=== PATIENT | male | born 1960 | race African-American/Black ===

== ENCOUNTER 2018-04-23 13:42 | Observation (INO) | payer MEDICAID ==
[2018-04-23] VITALS: BP 147/92
[~2018-04-23] VITALS: Ht 180.3 cm; Wt 83.7 kg
[2018-04-23 15:02] LABS: EOSINOPHILS % (AUTO) 0.3 % (0.0-8.0); HEMATOCRIT 41.6 % (42-54); MEAN CORPUSCULAR HEMOGLOBIN 29.7 pg (27.0-33.0); MEAN CORPUSCULAR HGB CONC 34.4 g/dL (32.0-36.0); MEAN CORPUSCULAR VOLUME 86.3 fL (79-99); MONOCYTES % (AUTO) 7.5 % (3.0-13.0); NEUTROPHILS % (AUTO) 75.2 % (40.0-77.0); PLATELET COUNT (AUTO) 402 K/uL (130-400); RED BLOOD CELL COUNT(AUTO) 4.82 MIL/uL (4.50-6.20); RED CELL DISTRIBUTION WIDTH 13.2 % (11.0-15.5); WHITE BLOOD COUNT (AUTO) 7.1 K/uL (4.8-10.8)
[2018-04-23] MEDS ORDERED: SODIUM CHLORIDE 0.9% 1000ML 1,000 ML IV ONE (15:05)
[2018-04-23] MEDS ORDERED: ONDANSETRON HCL 4 MG/2 ML VIAL ONE (15:05)
[2018-04-23 15:16] LABS: ALBUMIN 3.9 g/dL (3.5-5.0); BILIRUBIN,TOTAL 0.4 mg/dL (0.2-1.0); POTASSIUM 4.1 mmol/L (3.5-5.1); TOTAL PROTEIN, SERUM 8.5 g/dL (6.0-8.3)
[2018-04-23 15:29] LABS: APPEARANCE,URINE CLOUDY (CLEAR); BILIRUBIN,URINE NEGATIVE (NEGATIVE); COLOR,URINE YELLOW (YELLOW); GLUCOSE, URINE (UA) >=1000 mg/dL (NEGATIVE); KETONES,URINE 5 mg/dL (NEGATIVE); LEUKOCYTE ESTERASE ,URINE TRACE (NEGATIVE); NITRATE,URINE NEGATIVE (NEGATIVE); OCCULT BLOOD,URINE SMALL (NEGATIVE); PROTEIN,URINE >=300 (NEGATIVE)
[2018-04-23 15:50] LABS: RBC,URINE 0-1 /HPF (0-1)
[2018-04-23 15:51] LABS: BACTERIA,URINE Many /HPF (None Seen)
[2018-04-23 15:55] LABS: SQUAMOUS EPITHELIAL CELL,UR Few /HPF (0-2); YEAST,URINE BUDDING Rare /HPF (None Seen)
[2018-04-23] MEDS ORDERED: HYOSCYAMINE SULFATE 0.125 MG TAB.SUBL SL ONE (17:54)
[2018-04-23] MEDS ORDERED: ACETAMINOPHEN 325 MG TAB ONE (17:54)
[2018-04-23] MEDS ORDERED: SIMETHICONE 80 MG TAB.CHEW ONE (17:54)
[2018-04-23] MEDS ORDERED: GLUCAGON 1MG KIT 1 MG ML IM PRN (22:00)
[2018-04-23] MEDS ORDERED: DEXTROSE 50%-WATER 50 ML DISP.SYRIN IV PRN (22:00)
[2018-04-23] MEDS ORDERED: CLONIDINE HCL 0.1 MG TABLET PO PRN (22:00)
[2018-04-23 22:05] VITALS: BP 142/91
[2018-04-24] MEDS: FAMOTIDINE 20MG TAB 20 MG TAB PO SCH ×2 (00:28→09:42)
[2018-04-24] MEDS ORDERED: SODIUM CHLORIDE 0.9% 1000ML 1,000 ML IV SCH (00:45)
[2018-04-24] MEDS ORDERED: DICYCLOMINE HCL 20 MG TAB ONE (03:29)
[2018-04-24] MEDS ORDERED: DICYCLOMINE HCL 20 MG TAB PO PRN (03:30)
[2018-04-24 04:00] VITALS: BP 151/87
[2018-04-24 05:08] LABS: CREATININE 0.9 mg/dL (0.5-1.5)
[2018-04-24 07:00] VITALS: BP 170/71
[2018-04-24] MEDS ORDERED: INSULIN HUMULIN R 100 UNIT/ML 3ML SQ SCH (07:30)
== END 2018-04-24 10:26 | disposition left against medical advice (07) ==
LOC: EDH 13:42 → EDHIP 13:43 → 3BH 21:43
PROVIDERS: ADMIT Internal Medicine; ATTEND Internal Medicine
DX: E87.1 Hypo-osmolality and hyponatremia (principal); I10 Essential (primary) hypertension; E11.9 Type 2 diabetes mellitus without complications; Z21 Asymptomatic human immunodeficiency virus [HIV] infection status; F17.210 Nicotine dependence, cigarettes, uncomplicated; Z79.899 Other long term (current) drug therapy
CPT/HCPCS: 36415 ×2; 71046; 80048; 80053; 81001; 82948 ×2; 83690; 85025; 87040; 87088; 87804 ×2; 99285; G0378 ×21; J2405; J7030

== ENCOUNTER 2019-04-20 16:52 | Inpatient (IN) | payer MEDICAID ==
[~2019-04-20] VITALS: Ht 180.3 cm; Wt 71.7 kg
[~2019-04-20 16:52] MED LIST: BUPR300T54 PO; CLOP75TA32 PO; DOLU50TA PO; EMTR1TAB12 PO; LISI40TA4 PO; OMEP40CA13 PO; OXCA600T18 PO; TRAM50TA4 PO
[2019-04-20 17:31] LABS: BASOPHILS % (AUTO) 0.9 % (0.0-5.0); EOSINOPHILS % (AUTO) 0.6 % (0.0-8.0); HEMATOCRIT 32.3 % (42-54); LYMPHOCYTES % (AUTO) 22.5 % (21.0-51.0); MEAN CORPUSCULAR HGB CONC 34.5 g/dL (32.0-36.0); MEAN CORPUSCULAR VOLUME 81.1 fL (79-99); MONOCYTES % (AUTO) 8.5 % (3.0-13.0); NEUTROPHILS % (AUTO) 67.5 % (40.0-77.0); PLATELET COUNT (AUTO) 513 K/uL (130-400); RED BLOOD CELL COUNT(AUTO) 3.98 MIL/uL (4.50-6.20); RED CELL DISTRIBUTION WIDTH 14.9 % (11.0-15.5); WHITE BLOOD COUNT (AUTO) 4.7 K/uL (4.8-10.8)
[2019-04-20 17:43] LABS: INR 1.02 (0.85-1.15); PARTIAL THROMBOPLASTIN TIME 35.9 SEC (26.3-35.5); PROTHROMBIN TIME 10.7 SEC (9.6-11.6)
[2019-04-20 17:51] LABS: ALBUMIN 3.7 g/dL (3.5-5.0); BILIRUBIN,TOTAL 0.5 mg/dL (0.2-1.0); CRP QUANTITATIVE 12.2 mg/L (0.00-9.0); POTASSIUM 4.5 mmol/L (3.5-5.1); TOTAL PROTEIN, SERUM 8.1 g/dL (6.0-8.3)
[2019-04-20 18:36] LABS: ERYTHROCYTE SEDIMENTATION RATE 34 MM/HR (0-20)
[2019-04-20] MEDS ORDERED: ZOSYN 3.375GM+NS 50ML 50 ML IV ONE (20:40)
[2019-04-20] MEDS ORDERED: VANCOMYCIN 1GM+NS 250ML 250 ML IV ONE (20:51)
[2019-04-20] MEDS: SODIUM CHLORIDE 0.9% 1000ML 1,000 ML IV SCH (22:44)
[2019-04-20] MEDS ORDERED: MORPHINE SULFATE 2 MG/ML 1ML SYG IV PRN (22:45)
[2019-04-20] MEDS ORDERED: ACETAMINOPHEN 325 MG TAB PO PRN (22:45)
[2019-04-20] MEDS ORDERED: ONDANSETRON HCL 4 MG/2 ML VIAL IV PRN (22:45)
[2019-04-20] MEDS ORDERED: VANCOMYCIN PROTOCOL PER PHARMACY IV SCH (22:45)
[2019-04-21] MEDS ORDERED: SODIUM CHLORIDE 0.9% 1000ML 1,000 ML IV ONE (00:22)
[2019-04-21 00:35] VITALS: BP 145/91
[2019-04-21 01:45] LABS: APPEARANCE,URINE Cloudy (CLEAR); BILIRUBIN,URINE Negative (NEGATIVE); COLOR,URINE Yellow (YELLOW); GLUCOSE, URINE (UA) Negative (NEGATIVE); KETONES,URINE Trace mg/dL (NEGATIVE); LEUKOCYTE ESTERASE ,URINE Moderate (NEGATIVE); NITRATE,URINE Negative (NEGATIVE); OCCULT BLOOD,URINE Trace (NEGATIVE); PH,URINE 7.5 (5.0-8.0); PROTEIN,URINE POS 2+ mg/dL (NEGATIVE)
[2019-04-21 02:02] LABS: BACTERIA,URINE Many /HPF (None Seen); RBC,URINE 0-1 /HPF (0-1); SQUAMOUS EPITHELIAL CELL,UR 0-2 /HPF (0-2)
[2019-04-21 04:00] VITALS: BP 142/71
[2019-04-21 04:11] LABS: BASOPHILS % (AUTO) 0.7 % (0.0-5.0); EOSINOPHILS % (AUTO) 0.3 % (0.0-8.0); HEMATOCRIT 29.5 % (42-54); LYMPHOCYTES % (AUTO) 20.6 % (21.0-51.0); MEAN CORPUSCULAR HEMOGLOBIN 28.4 pg (27.0-33.0); MEAN CORPUSCULAR HGB CONC 35.1 g/dL (32.0-36.0); MEAN CORPUSCULAR VOLUME 80.8 fL (79-99); NEUTROPHILS % (AUTO) 67.4 % (40.0-77.0); PLATELET COUNT (AUTO) 464 K/uL (130-400); RED BLOOD CELL COUNT(AUTO) 3.65 MIL/uL (4.50-6.20); RED CELL DISTRIBUTION WIDTH 14.8 % (11.0-15.5)
[2019-04-21 04:23] LABS: CREATININE 0.9 mg/dL (0.5-1.5); POTASSIUM 3.8 mmol/L (3.5-5.1)
[2019-04-21] MEDS: ZOSYN 3.375GM+NS 50ML 50 ML IV SCH ×2 (06:09→15:53)
[2019-04-21 08:00] VITALS: BP 157/94
[2019-04-21] MEDS: ENOXAPARIN SODIUM 40 MG/0.4 ML SYRINGE SQ SCH (08:43)
[2019-04-21] MEDS: VANCOMYCIN 1GM+NS 250ML 250 ML IV SCH ×2 (08:43→21:39)
[2019-04-21] MEDS: SODIUM CHLORIDE 0.9% 1000ML 1,000 ML IV SCH ×2 (08:44→18:54)
[2019-04-21 10:23] LABS: HEMOGLOBIN A1C 6.6 % (4.0-6.0)
[2019-04-21 12:38] VITALS: BP 157/94
--- NOTE | 2019-04-21 15:00 | NUR ---
JAXON MET W PATIENT ALONE, AAOX 3, LIVES W SPOUSE INGA WHO WILL PROVIDE TRANSPORT HOME HAS ROLLING WKR CANE AND SHOWER CHAIR, PROVIDER 4/DAY HOME SAFE & ACCESSIBLE PT AWARE WILL NEED WOUND CARE/ABX ON DISCHARGE- IS UNCOMFORTABLE IN PAIN, STATES IF NEED AIU, MOTHER IN LAW CA PORIVDE TRANSPORT OR CAN ARRANGE MEDICAL TRANSPORT. CM TO FOLLOW UP Addendum: 04/21/19 at 0 by CARLOS REYNOSO RN CM Amended: Links added.
[2019-04-21] MEDS ORDERED: DIPH,PERTUSS(ACELL),TET VAC/PF 0.5 ML VIAL IM SCH (15:30)
[2019-04-21 17:05] VITALS: BP 145/88
[2019-04-21 20:48] VITALS: BP 157/78
[2019-04-21] MEDS ORDERED: TEMAZEPAM 7.5 MG CAPSULE PO ONE ×2 (22:55→23:00)
[2019-04-22] MEDS: SODIUM CHLORIDE 0.9% 1000ML 1,000 ML IV SCH ×2 (03:36→15:23)
[2019-04-22] MEDS: ZOSYN 3.375GM+NS 50ML 50 ML IV SCH ×3 (03:36→20:58)
[2019-04-22 04:50] VITALS: BP 138/81
[2019-04-22 07:30] VITALS: BP 152/92
[2019-04-22] MEDS: ASPIRIN 81MG TAB.CHEW PO SCH (08:48)
[2019-04-22] MEDS: VANCOMYCIN 1GM+NS 250ML 250 ML IV SCH ×3 (08:48→22:18)
[2019-04-22] MEDS: ENOXAPARIN SODIUM 40 MG/0.4 ML SYRINGE SQ SCH (08:48)
[2019-04-22] MEDS ORDERED: ZIPR80CA21 PO (08:57)
[2019-04-22] MEDS ORDERED: BENZ1TAB10 PO (08:57)
[2019-04-22 11:00] VITALS: BP 159/90
[2019-04-22] MEDS ORDERED: HYDROXYZINE HCL 50 MG/ML VIAL IM PRN (11:30)
[2019-04-22 13:04] LABS: CREATININE 0.9 mg/dL (0.5-1.5); POTASSIUM 3.7 mmol/L (3.5-5.1)
[2019-04-22 16:00] VITALS: BP 121/69
[2019-04-22 20:00] VITALS: BP 154/81
--- NOTE | 2019-04-22 20:00 | NUR ---
called and left message with dr terrazas regarding following up on mri results showing some osteomylities on distal toe . pending call back
[2019-04-23] VITALS (8 sets, daily range): BP systolic 136–161; BP diastolic 69–94
[2019-04-23] MEDS: SODIUM CHLORIDE 0.9% 1000ML 1,000 ML IV SCH (00:44)
[2019-04-23 05:11] LABS: BASOPHILS % (AUTO) 1.4 % (0.0-5.0); EOSINOPHILS % (AUTO) 1.2 % (0.0-8.0); LYMPHOCYTES % (AUTO) 28.5 % (21.0-51.0); MEAN CORPUSCULAR HEMOGLOBIN 27.8 pg (27.0-33.0); MEAN CORPUSCULAR HGB CONC 33.9 g/dL (32.0-36.0); MEAN CORPUSCULAR VOLUME 82.1 fL (79-99); MONOCYTES % (AUTO) 12.1 % (3.0-13.0); NEUTROPHILS % (AUTO) 56.8 % (40.0-77.0); PLATELET COUNT (AUTO) 479 K/uL (130-400); RED BLOOD CELL COUNT(AUTO) 4.02 MIL/uL (4.50-6.20); RED CELL DISTRIBUTION WIDTH 14.9 % (11.0-15.5); WHITE BLOOD COUNT (AUTO) 5.4 K/uL (4.8-10.8)
[2019-04-23 05:19] LABS: CREATININE 0.8 mg/dL (0.5-1.5); POTASSIUM 3.4 mmol/L (3.5-5.1)
[2019-04-23] MEDS: VANCOMYCIN 1GM+NS 250ML 250 ML IV SCH ×3 (06:00→23:42)
[2019-04-23] MEDS: ZOSYN 3.375GM+NS 50ML 50 ML IV SCH ×3 (08:34→20:42)
[2019-04-23] MEDS: ASPIRIN 81MG TAB.CHEW PO SCH (08:34)
[2019-04-23] MEDS: ENOXAPARIN SODIUM 40 MG/0.4 ML SYRINGE SQ SCH (08:35)
--- NOTE | 2019-04-23 10:00 | NUR ---
NOTIFED DR SCHMITZ ON ROUNDS REGARDING MISAEL MAYA HAS SOME OF HIS MEDS AND NOT HIS HIV MEDS ,ALSO LET HIM KNOW PER PHARMACY HIV MEDS NOT AVAILABLE AND PATIENT WILL HAVE TO HAVE SOMEONE BRING . PER ZHANNA HIS IS ADMITTED AT A HOSPITAL AND UNABLE TO BEING . AWARE . SOME OF HIS HOME MEDS RECONCILATED AND CONTINUED
[2019-04-23] MEDS: LISINOPRIL 40 MG TABLET PO SCH (20:43)
[2019-04-23] MEDS: BENZTROPINE MESYLATE 0.5 MG TAB PO SCH (20:44)
[2019-04-23] MEDS: EMTRICITABINE PO SCH (20:45)
[2019-04-23] MEDS: DOLUTEGRAVIR SODIUM 50 MG PO SCH (20:45)
[2019-04-23] MEDS: TENOFOV ALAFENAM PO SCH (20:45)
[2019-04-23] MEDS: ZIPRASIDONE HCL 80 MG CAPSULE PO SCH (20:45)
--- NOTE | 2019-04-23 23:10 | NUR ---
AUTOMOTIVE PARTS COUNTERPERSON walked in to room 329 to find patient facing down on floor outside restroom door with urine noted around him. Patient awake and alert, denies he was walking towards restroom, but was asleep when he rolled off the bed, hitting right side/episcopalian area. He tried, but was unable to get up. He then dragged himself away from his bed and towards the restroom. IV line was found on floor, small amounts of dry blood noted on floor, close to feet of the bed. Patient was assisted back to bed, no injuries noted on his body, no bumps/hematomas noted on his head. V/S 161/85, 97.3, 74, 16, 99% at room air. Once in bed, he insisted he had to go to the restroom, urinal was offered, but was refused. Once in restroom, patient noted with unsteady gait, staff attempted to provide assistance, but patient became increasingly upset, refused assistance, started to raise his voice, telling staff to leave him alone. Once he was finished, staff attempted to assist him back to bed, but noted patient was increasingly upset and agitated. He was refusing to get back in bed, started yelling, saying he took psych medications and we did not know what we were dealing with. AUTOMOTIVE PARTS COUNTERPERSON and RN will continue to monitor.
--- NOTE | 2019-04-23 23:55 | NUR ---
S/P FALL-CALLED JEAN-PAUL LOVE POWER BRAKE OPERATOR TO INFORM OF FALL EARLIER, INFORMED OF PATIENT REPORTING HITTING HIS HEAD AND NOTED INCREASED RESTLESSNESS/CONFUSION, ORDER GIVEN FOR CT HEAD/BRAIN STAT. TIRE REGROOVING MACHINE OPERATOR AND BOTTOM TURNING LATHE TENDER WERE ALSO CALLED TO INFORM OF FALL. HOWEVER, PATIENT REFUSES TO HAVE CT DONE. PATIENT ARGUES HE HAS BEEN THROUGH ALOT, HAS HAD CT SCANS DONE BEFORE AND WILL NOT HAVE IT DONE. WILL LEAVE FOR NOW AND ATTEMPT AT A LATER TIME. Addendum: 04/24/19 at 1008 by VICKY MADRIGAL RN RN ADD TO ABOVE NOTE: BED ALARM WAS PLACED, BED BRAKES/SIDERAILS WERE SECURED, CALL LIGHT PLACED WITHIN REACH, PATIENT REMINDED AND ENCOURAGED TO CALL FOR ASSISTANCE PRN. ROOM LIGHTS DIMMED TO HELP RELAX.
[2019-04-24] VITALS (11 sets, daily range): BP systolic 148–167; BP diastolic 64–97
[2019-04-24] MEDS: HYDROXYZINE HCL 25 MG TABLET PO PRN ×2 (00:54→23:16)
--- NOTE | 2019-04-24 01:45 | NUR ---
S/P FALL-PATIENT REFUSES NEURO CHECKS, STARTS YELLING TO BE LEFT ALONE. WILL CONTINUE TO MONITOR.
[2019-04-24] MEDS ORDERED: LORAZEPAM 2 MG/ML 1 ML VIAL IVP ONE (03:15)
--- NOTE | 2019-04-24 03:15 | NUR ---
S/P FALL-JEAN-PAUL KATE RN INTENSIVE CARE UNIT WAS CALLED TO INFORM PATIENT HAS CONTINUED INCREASINGLY CONFUSED, ARGUMENTATIVE, VERY IMPULSIVE WANTS TO STAND AND WALK WITHOUT ASSISTANCE. HE BECOMES VERY UPSET WHEN STAFF ATTEMPTS TO PROVIDE ASSISTANCE. PATIENT AT A VERY HIGH RISK FOR FALLS/INJURY TO SELF AND OTHERS. NEW ORDER GIVEN FOR ATIVAN 1MG IV X1 AND 1:1 SITTER. PATIENT TRANSFERRED TO ROOM 326 TO BE CLOSER TO NURSE'S STATION. WILL CONTINUE TO MONITOR.
[2019-04-24] MEDS ORDERED: LORAZEPAM 2 MG/ML 1 ML VIAL ONE ×2 (03:28→08:52)
--- NOTE | 2019-04-24 03:35 | NUR ---
S/P FALL-ATIVAN 1MG IV X1 GIVEN. WILL CONTINUE TO MONITOR.
--- NOTE | 2019-04-24 03:45 | NUR ---
S/P FALL-PATIENT CURRENTLY NPO FOR PENDING SURGERY LATER TODAY. PATIENT BECAME AGGRESSIVE AND ATTEMPTED TO STRIKE AND SCRATCHED ANOTHER FLOOR RN AFTER PATIENT REQUESTED COFFEE AND WAS INFORMED OF NPO STATUS DUE TO PENDING SURGERY. WILL CONTINUE TO MONITOR.
--- NOTE | 2019-04-24 04:35 | NUR ---
S/P FALL-PATIENT MORE CALM AND COOPERATIVE AT PRESENT, AGREED TO HAVE CT SCAN DONE. PATIENT WAS TRANSFERRED DOWN TO CT ACCOMPANIED BY 1:1 SITTER AND IC DESIGNER CUSTOM WITHOUT INCIDENT. WILL CONTINUE TO MONITOR.
[2019-04-24] MEDS: ZOSYN 3.375GM+NS 50ML 50 ML IV SCH ×3 (05:09→20:02)
[2019-04-24] MEDS: ACETAMINOPHEN 325 MG TAB PO PRN (05:10)
[2019-04-24 05:53] LABS: BASOPHILS % (AUTO) 1.5 % (0.0-5.0); EOSINOPHILS % (AUTO) 1.3 % (0.0-8.0); HEMATOCRIT 31.4 % (42-54); LYMPHOCYTES % (AUTO) 17.9 % (21.0-51.0); MEAN CORPUSCULAR HEMOGLOBIN 27.8 pg (27.0-33.0); MEAN CORPUSCULAR HGB CONC 34.1 g/dL (32.0-36.0); MEAN CORPUSCULAR VOLUME 81.5 fL (79-99); MONOCYTES % (AUTO) 11.4 % (3.0-13.0); NEUTROPHILS % (AUTO) 67.9 % (40.0-77.0); PLATELET COUNT (AUTO) 455 K/uL (130-400); RED BLOOD CELL COUNT(AUTO) 3.85 MIL/uL (4.50-6.20); RED CELL DISTRIBUTION WIDTH 14.9 % (11.0-15.5)
[2019-04-24 06:05] LABS: CREATININE 0.8 mg/dL (0.5-1.5); POTASSIUM 3.5 mmol/L (3.5-5.1)
[2019-04-24] MEDS: VANCOMYCIN 1GM+NS 250ML 250 ML IV SCH ×3 (07:07→23:20)
--- NOTE | 2019-04-24 07:30 | NUR ---
S/P FALL-PATIENT CONTINUES WITH 1:1 SITTER HE CONTINUES WITH INCREASING CONFUSION/RESTLESSNESS/AGGRESSIVENESS AGAIN AND IS VERBALLY ABUSIVE TOWARDS STAFF. HE ATTEMPTS TO KICK AND SCRATCH WHEN APPROACHED TO REPOSITION IN BED HE CONTINUES TO ATTEMPT TO GET OUT OF BED UNASSISTED. SECURITY WAS CALLED FOR ASSISTANCE. WILL CONTINUE TO MONITOR.
[2019-04-24] MEDS ORDERED: LORAZEPAM 2 MG/ML 1 ML VIAL IM SCH (08:45)
--- NOTE | 2019-04-24 08:45 | NUR ---
S/P FALL-PABLO CLIVE FIELD CONTROL INSPECTOR WAS MADE AWARE OF (-) CT HEAD RESULTS, YET PATIENT CONTINUES WITH PERSISTENT CONFUSION/RESTLESSNESS/AGRESSIVENESS. NEW ORDER GIVEN FOR ATIVAN 0.5MG IM X1 AND TO CALL AGAIN IF PATIENT CONTINUES WITH PERSISTENT CONFUSION AFTER THE ATIVAN.
[2019-04-24] MEDS: ASPIRIN 81MG TAB.CHEW PO SCH (09:00)
[2019-04-24] MEDS: BUPROPION HCL 150 MG TABLET.SA PO SCH (09:00)
--- NOTE | 2019-04-24 12:15 | NUR ---
DR. MUIR INPUT DR. ISADORA LIM, STATES PT WAS REGULAR OF HIS, BOTH PT & SPOUSE AND THAT THEY STRUGGLE TO MAINTAIN A REGULAR SCHEDULE/ FOLLOW ROUTINES, REQUIRING ASSISTANCE FROM WIFES MOTHER. DR. Johnson STATED FINE FOR PT TO STAY UNDER THE HOSPITALIST. STATES PLEASE CONTACT THE SPOUSE PRIOR TO DISCUSSING ANY DC PLANS WITH PT. SPOUSE AND SPOUSE'S MOM MAKE DECISIONS FOR THE PATIENT Addendum: 04/24/19 at 1405 by CARLOS REYNOSO RN Amended: Links added.
--- NOTE | 2019-04-24 13:55 | NUR ---
SEBASTIEN BOTELLO Sincere PHP MYSQL DEVELOPER AND NATHANIEL RN FROM SURGERY WERE HERE AND ASSESS PT .REGARDING ALTER MENTAL STATUS PT WAS NOT ABLE TO FOCUS WITH HIS CARE. OR SURGERY WILL LET KNOW OF ASSESSMENT .
--- NOTE | 2019-04-24 14:10 | NUR ---
DR. STOCKTON WAS CALLED AND UPDATE OF PT . MENTAL STATUS CHANGES THIS AM. AND HIS STATUS AT THIS POINT. PT WAS GIVEN ATIVAN 0.5 MG IM EARLY IN AM. DUE TO PT VERY AGGRESSIVE MENTAL STATUS. PT AT THIS POINT QUIETLY CALM.. PT HAS A STAFF ONE TO ONE I THE ROOM ALSO THAT DR. HUTCHINSON THE DOCUMENT CONTROL SUPERVISOR WAS HERE AND THAT HE HADA CORBYFF BACK IN 2018 AND THE REPORT WILL BE INTHE CHART . DR. STOCKTON STATED THAT HE WOULD LET THE ANESTHNEISA STAFF KNOW .
[2019-04-24] MEDS ORDERED: LORAZEPAM 2 MG/ML 1 ML VIAL IVP SCH (15:53)
--- NOTE | 2019-04-24 18:30 | NUR ---
DR. BAINS HERE AND UPDATE THAT THE SUREGERY WAS CANCEL DUE TO PT. MENTAL STATUS AND HIS BEHAVIOR WAS VERY UNCONTROLABLE. AND SPOKE WITH DR. GARCIA REGARDING NEEDED CONSULTATION .
--- NOTE | 2019-04-24 18:41 | NUR ---
DR. GARCIA HERE AND THE PSYCH. CONSULTATION PER WITH NEW MEDICATION . TO START
[2019-04-24] MEDS: RISPERIDONE 1 MG TABLET PO SCH (20:00)
[2019-04-24] MEDS: DULOXETINE HCL 30 MG CAP PO SCH (20:01)
[2019-04-24] MEDS: EMTRICITABINE PO SCH (20:01)
[2019-04-24] MEDS: LISINOPRIL 40 MG TABLET PO SCH (20:01)
[2019-04-24] MEDS: OXCARBAZEPINE 300 MG TAB PO SCH (20:01)
[2019-04-24] MEDS: TENOFOV ALAFENAM PO SCH (20:01)
[2019-04-24] MEDS: DOLUTEGRAVIR SODIUM 50 MG PO SCH (20:02)
[2019-04-24] MEDS: ZIPRASIDONE HCL 80 MG CAPSULE PO SCH (20:13)
[2019-04-24] MEDS: BENZTROPINE MESYLATE 0.5 MG TAB PO SCH (20:13)
--- NOTE | 2019-04-24 23:06 | NUR ---
PATIENT RESTING COMFORTABLY AND CALMLY Addendum: 04/24/19 at 2308 by JUAN C MCDONALD RN RN Amended: Links added.
[2019-04-25 04:11] VITALS: BP 165/98
[2019-04-25 05:29] LABS: BASOPHILS % (AUTO) 1.5 % (0.0-5.0); EOSINOPHILS % (AUTO) 0.8 % (0.0-8.0); HEMATOCRIT 30.5 % (42-54); MEAN CORPUSCULAR HEMOGLOBIN 27.6 pg (27.0-33.0); MEAN CORPUSCULAR HGB CONC 33.8 g/dL (32.0-36.0); MEAN CORPUSCULAR VOLUME 81.6 fL (79-99); MONOCYTES % (AUTO) 9.3 % (3.0-13.0); NEUTROPHILS % (AUTO) 70.4 % (40.0-77.0); PLATELET COUNT (AUTO) 430 K/uL (130-400); RED BLOOD CELL COUNT(AUTO) 3.74 MIL/uL (4.50-6.20); RED CELL DISTRIBUTION WIDTH 14.9 % (11.0-15.5); WHITE BLOOD COUNT (AUTO) 7.3 K/uL (4.8-10.8)
[2019-04-25 05:44] LABS: CREATININE 0.8 mg/dL (0.5-1.5); MAGNESIUM 1.5 mg/dL (1.80-2.40); POTASSIUM 3.4 mmol/L (3.5-5.1)
[2019-04-25] MEDS: ZOSYN 3.375GM+NS 50ML 50 ML IV SCH ×3 (05:44→20:12)
[2019-04-25] MEDS: VANCOMYCIN 1GM+NS 250ML 250 ML IV SCH ×3 (07:27→22:24)
[2019-04-25 08:00] VITALS: BP 184/99
--- NOTE | 2019-04-25 08:00 | NUR ---
PT AWAKE AND CONT TO BE ANXIOUS. UNABLE TO FOCUS WITH HIS CARE. HAS STAFF ONE TO ONE FOR SAFETY AND CARE HOB UP PER REPORT ; PT DID NOT SLEEP LAST NITE AND WAS NOT ABLE TO TAKE HIS NITE MEDICATIONS REFUSED SOME OF THEM. .
--- NOTE | 2019-04-25 09:30 | NUR ---
WAS ABLE TO GIVE PT . HIS MEDICATION MIX WITH COFFEE AND TOOK THEM WELL . CONT WITH SOME AGGRESSIVE BEHAVIOR AND HAS STAFF ONE TO ONE.
--- NOTE | 2019-04-25 11:30 | NUR ---
PT RESTING WELL IN BED , NO BEHAVIOR ISSUES AFTER PT TOOK HIS PSCHY MEDICATION THAT WAS SCHLD FOR HIS AM DOSES
[2019-04-25 12:00] VITALS: BP_SYST 117; BP_SYST 159; BP_DIAS 66; BP_DIAS 78
[2019-04-25] MEDS: BUPROPION HCL 150 MG TABLET.SA PO SCH (12:28)
[2019-04-25] MEDS: ASPIRIN 81MG TAB.CHEW PO SCH (12:28)
[2019-04-25] MEDS: RISPERIDONE 1 MG TABLET PO SCH ×2 (12:28→20:13)
[2019-04-25] MEDS: DULOXETINE HCL 30 MG CAP PO SCH ×2 (12:28→20:13)
[2019-04-25] MEDS: OXCARBAZEPINE 300 MG TAB PO SCH ×2 (12:30→20:13)
[2019-04-25 16:00] VITALS: BP 169/90
--- NOTE | 2019-04-25 16:50 | NUR ---
CALL . DR STOCKTON , BUT WAS NOT ABLE TO SPEAK WITH HIM. MESSAGE GIVEN TO NURSE , . UPDATE INFORMATION LEFT . FOR DR GONZALES TO KNOW HIS BEHAVIOR IS NOT ANXIOUS AND IS EATING WELL AND IS ABLE TO FOCUS WITH HIS CARE,
[2019-04-25 19:46] VITALS: BP 176/92
[2019-04-25] MEDS: ZIPRASIDONE HCL 80 MG CAPSULE PO SCH (20:12)
[2019-04-25] MEDS: BENZTROPINE MESYLATE 0.5 MG TAB PO SCH (20:12)
[2019-04-25] MEDS: LISINOPRIL 40 MG TABLET PO SCH (20:13)
[2019-04-25] MEDS: DOLUTEGRAVIR SODIUM 50 MG PO SCH (20:17)
[2019-04-25] MEDS: TENOFOV ALAFENAM PO SCH (20:17)
[2019-04-25] MEDS: EMTRICITABINE PO SCH (20:17)
[2019-04-26] VITALS (16 sets, daily range): BP systolic 157–181; BP diastolic 64–94
[2019-04-26] MEDS: ZOSYN 3.375GM+NS 50ML 50 ML IV SCH ×4 (03:39→20:05)
[2019-04-26] MEDS: VANCOMYCIN 1GM+NS 250ML 250 ML IV SCH ×3 (06:03→21:30)
[2019-04-26 08:04] LABS: BASOPHILS % (AUTO) 1.4 % (0.0-5.0); EOSINOPHILS % (AUTO) 2.9 % (0.0-8.0); HEMATOCRIT 29.2 % (42-54); LYMPHOCYTES % (AUTO) 23.8 % (21.0-51.0); MEAN CORPUSCULAR HGB CONC 34.2 g/dL (32.0-36.0); MEAN CORPUSCULAR VOLUME 81.8 fL (79-99); MONOCYTES % (AUTO) 11.3 % (3.0-13.0); NEUTROPHILS % (AUTO) 60.6 % (40.0-77.0); PLATELET COUNT (AUTO) 425 K/uL (130-400); RED BLOOD CELL COUNT(AUTO) 3.58 MIL/uL (4.50-6.20); RED CELL DISTRIBUTION WIDTH 15.1 % (11.0-15.5); WHITE BLOOD COUNT (AUTO) 5.2 K/uL (4.8-10.8)
[2019-04-26 08:14] LABS: CREATININE 0.8 mg/dL (0.5-1.5); CRP QUANTITATIVE 75.3 mg/L (0.00-9.0)
[2019-04-26 08:33] LABS: POTASSIUM 3.4 mmol/L (3.5-5.1)
[2019-04-26] MEDS: ASPIRIN 81MG TAB.CHEW PO SCH (09:00)
[2019-04-26 09:15] LABS: ERYTHROCYTE SEDIMENTATION RATE 45 MM/HR (0-20)
[2019-04-26] MEDS: OXCARBAZEPINE 300 MG TAB PO SCH ×2 (09:59→21:31)
[2019-04-26] MEDS: RISPERIDONE 1 MG TABLET PO SCH ×2 (10:00→21:31)
[2019-04-26] MEDS: BUPROPION HCL 150 MG TABLET.SA PO SCH (10:00)
[2019-04-26] MEDS: DULOXETINE HCL 30 MG CAP PO SCH ×2 (10:00→21:31)
[2019-04-26] MEDS: METOPROLOL TARTRATE 25 MG TAB PO SCH ×2 (10:00→21:31)
[2019-04-26] MEDS: POTASSIUM CHLORIDE 20 MEQ ERTAB PO SCH (11:21)
[2019-04-26] MEDS: SODIUM CHLORIDE 0.9% 1000ML 1,000 ML IV SCH ×2 (11:21→21:30)
--- NOTE | 2019-04-26 16:09 | NUR ---
RD SCREEN - LOS X 6 Pt admitted for Left second and third toe gangrene. Pt Hx of DM, PAD, HIV. Pt diet held secondary to pending procedure. Pending debridement of right and left feet as per EMR. Post procedure, recommend to resume diet as medically feasible. Recommend Timo BID for wound healing support. Pt LBM 04/22/19. Pt monitored labs: Na 129, K 3.4, Cl 96, CRP 75.30, Alb 3.7. RD to continue to monitor. Please notify SHELBY as additional nutrition concerns arise. Thank you. Addendum: 04/26/19 at [address] Amended: Links added.
[2019-04-26] MEDS: LISINOPRIL 40 MG TABLET PO SCH (16:29)
[2019-04-26] MEDS ORDERED: LISINOPRIL 40 MG TABLET PO SCH (16:30)
[2019-04-26] MEDS: HYDRALAZINE HCL 20 MG/ML VIAL IV PRN (16:30)
[2019-04-26] MEDS ORDERED: DEXAMETHASONE SOD PHOSPHATE 10MG/ML 1ML VIAL ONE (18:43)
[2019-04-26] MEDS ORDERED: LIDOCAINE PF 2% 5ML ABBOJECT ONE (18:43)
[2019-04-26] MEDS ORDERED: MIDAZOLAM HCL 1 MG/ML 2ML VIAL ONE (18:43)
[2019-04-26] MEDS ORDERED: PROPOFOL 10 MG/ML 20ML VIAL IV ONE (18:44)
[2019-04-26] MEDS ORDERED: ONDANSETRON HCL 4 MG/2 ML VIAL ONE (18:44)
[2019-04-26] MEDS ORDERED: FENTANYL CITRATE PF 50 MCG/1 ML 2ML VIAL ONE (18:45)
[2019-04-26] MEDS ORDERED: BUPIVACAINE/PF 0.5% 30ML VIAL ONE (19:27)
[2019-04-26] MEDS ORDERED: LIDOCAINE HCL 1% 20 ML VIAL ONE (19:27)
[2019-04-26] MEDS: DOLUTEGRAVIR SODIUM 50 MG PO SCH (21:00)
[2019-04-26] MEDS: EMTRICITABINE PO SCH (21:00)
[2019-04-26] MEDS: TENOFOV ALAFENAM PO SCH (21:00)
[2019-04-26] MEDS: BENZTROPINE MESYLATE 0.5 MG TAB PO SCH (21:31)
[2019-04-26] MEDS: ZIPRASIDONE HCL 80 MG CAPSULE PO SCH (21:31)
[2019-04-27] MEDS: ZOSYN 3.375GM+NS 50ML 50 ML IV SCH ×3 (03:41→19:39)
[2019-04-27 04:03] VITALS: BP 183/80
[2019-04-27] MEDS: HYDRALAZINE HCL 20 MG/ML VIAL IV PRN (04:16)
[2019-04-27 05:30] LABS: BASOPHILS % (AUTO) 1.1 % (0.0-5.0); EOSINOPHILS % (AUTO) 1.7 % (0.0-8.0); HEMATOCRIT 34.3 % (42-54); LYMPHOCYTES % (AUTO) 12.6 % (21.0-51.0); MEAN CORPUSCULAR HEMOGLOBIN 27.5 pg (27.0-33.0); MEAN CORPUSCULAR HGB CONC 33.5 g/dL (32.0-36.0); MEAN CORPUSCULAR VOLUME 82.1 fL (79-99); MONOCYTES % (AUTO) 8.1 % (3.0-13.0); NEUTROPHILS % (AUTO) 76.5 % (40.0-77.0); PLATELET COUNT (AUTO) 442 K/uL (130-400); RED BLOOD CELL COUNT(AUTO) 4.18 MIL/uL (4.50-6.20); RED CELL DISTRIBUTION WIDTH 14.9 % (11.0-15.5); WHITE BLOOD COUNT (AUTO) 6.2 K/uL (4.8-10.8)
[2019-04-27 05:40] LABS: CREATININE 0.8 mg/dL (0.5-1.5); CRP QUANTITATIVE 40.8 mg/L (0.00-9.0)
[2019-04-27] MEDS: VANCOMYCIN 1GM+NS 250ML 250 ML IV SCH ×3 (06:22→22:01)
[2019-04-27 07:14] LABS: ERYTHROCYTE SEDIMENTATION RATE 25 MM/HR (0-20)
[2019-04-27 07:30] VITALS: BP 129/62
[2019-04-27] MEDS: POTASSIUM CHLORIDE 20 MEQ ERTAB PO SCH (07:43)
[2019-04-27] MEDS: DULOXETINE HCL 30 MG CAP PO SCH ×2 (09:04→19:40)
[2019-04-27] MEDS: RISPERIDONE 1 MG TABLET PO SCH ×2 (09:04→19:40)
[2019-04-27] MEDS: METOPROLOL TARTRATE 25 MG TAB PO SCH ×2 (09:04→19:40)
[2019-04-27] MEDS: LISINOPRIL 40 MG TABLET PO SCH (09:04)
[2019-04-27] MEDS: ASPIRIN 81MG TAB.CHEW PO SCH (09:04)
[2019-04-27] MEDS: BUPROPION HCL 150 MG TABLET.SA PO SCH (09:05)
[2019-04-27] MEDS: OXCARBAZEPINE 300 MG TAB PO SCH ×2 (09:05→19:40)
[2019-04-27 11:58] VITALS: BP 144/88
[2019-04-27 16:00] VITALS: BP 165/80
[2019-04-27] MEDS: BENZTROPINE MESYLATE 0.5 MG TAB PO SCH (19:40)
[2019-04-27] MEDS: ZIPRASIDONE HCL 80 MG CAPSULE PO SCH (19:40)
[2019-04-27] MEDS: TENOFOV ALAFENAM PO SCH (19:46)
[2019-04-27] MEDS: DOLUTEGRAVIR SODIUM 50 MG PO SCH (19:46)
[2019-04-27] MEDS: EMTRICITABINE PO SCH (19:46)
[2019-04-27 20:00] VITALS: BP 156/77
[2019-04-28] VITALS (7 sets, daily range): BP systolic 111–172; BP diastolic 53–91
[2019-04-28] MEDS: ZOSYN 3.375GM+NS 50ML 50 ML IV SCH ×3 (03:46→20:42)
[2019-04-28] MEDS: VANCOMYCIN 1GM+NS 250ML 250 ML IV SCH ×2 (06:00→23:56)
[2019-04-28] MEDS: POTASSIUM CHLORIDE 20 MEQ ERTAB PO SCH ×2 (10:45→11:36)
[2019-04-28] MEDS: DULOXETINE HCL 30 MG CAP PO SCH (11:34)
[2019-04-28] MEDS: OXCARBAZEPINE 300 MG TAB PO SCH (11:34)
[2019-04-28] MEDS: ASPIRIN 81MG TAB.CHEW PO SCH (11:35)
[2019-04-28] MEDS: METOPROLOL TARTRATE 25 MG TAB PO SCH (11:35)
[2019-04-28] MEDS: RISPERIDONE 1 MG TABLET PO SCH ×2 (11:35→21:00)
[2019-04-28] MEDS: LISINOPRIL 40 MG TABLET PO SCH (11:35)
[2019-04-28] MEDS: BUPROPION HCL 150 MG TABLET.SA PO SCH (11:35)
[2019-04-28] MEDS: HYDRALAZINE HCL 20 MG/ML VIAL IV PRN (13:05)
--- NOTE | 2019-04-28 14:43 | NUR ---
DISCHARGE PLANNING W MOTHER IN LAW SAFE DISCHARGE REQUIRES CARE AT HOME CALL TO MOTHER IN LAW LEANDRA HARRINGTON WHO HAS DAUGHTER/ SPOUSES PHONE, SOUSE HOSPITALIZED, LEANDRA TRYING TO ARRANGE PROVIDER SERVICES, DOES NOT WANT OLD PROVIDER BACK IN HER HOME. CALLED TO CYDNEY AT [facility] PROVIDER, WHO STATES THEY HAVE A CARE PLAN FOR HE PATIENT BUT HE HAS TO AGREE TO IT. MIL IS NOT POA. CM INFORMED CYDNEY THAT PT IS TOO SEDATED TO GIVE ANY CONSENT TO CARE PLAN AT THE MOMENT AND WE ARE WORKING WITH THE MD TO ADJUST MEDICATIONS CALL BACK FROM MOTHER IN LAW, SHE WILL BE BY LATER TOSEE PATIENT, IS SUGGESTING MAYBE PLAN OF CARE CAN BE EXPLAINED AND DOCUMENTED AND FAXED TO [facility] SO SERVICE CHANGE CAN START WEDNESDAY? CM IN AGREEMENT TO ASSIST. AARON DC THIS WEEKEND Addendum: 04/28/19 at 1452 by CARLOS REYNOSO RN CM Amended: Links added.
--- NOTE | 2019-04-28 17:15 | NUR ---
PATIENT AGREED TO CHANGE IN HOME CARE PROVIDERS PATIENT AWAKE, COHERENT , UNCOMFORTABLE, ADVISED HIM THAT HIS MOTHER IN LAW REQUESTED A CHANGE IN HOME CARE PROVIDERS ON DISCHARGE, AND THAT [facility] NEEDED TO KNOW IF HE WAS AGREEABLE TO A SWITCH - THAT THE DECISION WAS HIS, NO ONE ELSES, MR SMITH STATES THAT HAVING VANESSA COME BACK WAS OK WITH HIM. THIS WAS WITNESSED BY JHONNY ROD, [facility] WILL NEED TO BE NOTIFIED SO CHANGE CAN GO INTO EFFECT ON WednesdayMAY 01 Addendum: 04/28/19 at 1853 by CARLOS REYNOSO RN CORRECTION- PREVIOUS PROVIDER'S NAME IS COLE, NOT VANESSA. PT WOULD BE OK TO HAVE COLE COME TO LOOK AFTER HIM UNTIL A MALE PROVIDER ANDRES TIS ACCEPTABLE TO MR MUNOZ AND HIS FMAILY CAN BE FOUND
[2019-04-28] MEDS: LACTULOSE 20 GM/30 ML UDCUP PO PRN (18:13)
--- NOTE | 2019-04-28 19:19 | NUR ---
ORDERS FORM DR STOCKTON- SAW DR. STOCKTON IN [facility], DISCUSSED PT, DR. STOCKTON WOULD LIKE BOTH PT AND HIS TO BE PLACED- CM ADVISED HIM THAT IS NOT POSSIBLE, DR. STOCKTON STATES PT NEEDS WHEEL CHAIR- TITLE XIX SIGNED AND PLACED ON CM DESK FRO FOLLOW UP IN AM DR. STOCKTON ENTERED ORDER FOR DSG CHANGES/HH. ADVISED HIM THAT [facility] AND/OR [facility] MAY TAKE PTS TYPE OF MEDICAID- DR. STOCKTON FINE WITH EITHER ONE OF THOSE, CM WILL FOLLOW-UP IN AM
[2019-04-28] MEDS: DOLUTEGRAVIR SODIUM 50 MG PO SCH (20:05)
[2019-04-28] MEDS: EMTRICITABINE PO SCH (20:05)
[2019-04-28] MEDS: TENOFOV ALAFENAM PO SCH (20:05)
[2019-04-29] MEDS: BENZTROPINE MESYLATE 0.5 MG TAB PO SCH ×2 (00:06→22:42)
[2019-04-29] MEDS: OXCARBAZEPINE 300 MG TAB PO SCH ×3 (00:06→21:00)
[2019-04-29] MEDS: ZIPRASIDONE HCL 80 MG CAPSULE PO SCH ×2 (00:06→22:42)
[2019-04-29] MEDS: DULOXETINE HCL 30 MG CAP PO SCH ×3 (00:07→22:43)
[2019-04-29] MEDS: METOPROLOL TARTRATE 25 MG TAB PO SCH ×3 (00:08→22:44)
[2019-04-29] MEDS: ZOSYN 3.375GM+NS 50ML 50 ML IV SCH ×3 (04:03→19:59)
[2019-04-29 04:51] LABS: ALBUMIN 2.6 g/dL (3.5-5.0); CREATININE 1.7 mg/dL (0.5-1.5); MAGNESIUM 1.3 mg/dL (1.80-2.40); PHOSPHORUS 4.3 mg/dL (2.5-4.9)
[2019-04-29 05:15] LABS: BASOPHILS % (AUTO) 0.7 % (0.0-5.0); HEMATOCRIT 28.8 % (42-54); LYMPHOCYTES % (AUTO) 15.2 % (21.0-51.0); MEAN CORPUSCULAR HEMOGLOBIN 27.5 pg (27.0-33.0); MEAN CORPUSCULAR HGB CONC 33.6 g/dL (32.0-36.0); MEAN CORPUSCULAR VOLUME 81.9 fL (79-99); MONOCYTES % (AUTO) 12.6 % (3.0-13.0); NEUTROPHILS % (AUTO) 70.5 % (40.0-77.0); PLATELET COUNT (AUTO) 413 K/uL (130-400); RED BLOOD CELL COUNT(AUTO) 3.52 MIL/uL (4.50-6.20); WHITE BLOOD COUNT (AUTO) 6.7 K/uL (4.8-10.8)
[2019-04-29 08:00] VITALS: BP 135/60
[2019-04-29] MEDS: VANCOMYCIN 1GM+NS 250ML 250 ML IV SCH ×2 (09:12→22:54)
[2019-04-29] MEDS: BUPROPION HCL 150 MG TABLET.SA PO SCH (09:13)
[2019-04-29] MEDS: RISPERIDONE 1 MG TABLET PO SCH ×2 (09:13→21:00)
[2019-04-29] MEDS: ASPIRIN 81MG TAB.CHEW PO SCH (09:14)
[2019-04-29] MEDS: POTASSIUM CHLORIDE 20 MEQ ERTAB PO SCH (10:45)
--- NOTE | 2019-04-29 11:07 | NUR ---
PT: Spoke w primary nurse regarding obtaining PT orders to eval and treat.
[2019-04-29 12:00] VITALS: BP 135/60
[2019-04-29] MEDS ORDERED: ENOXAPARIN SODIUM 30 MG/0.3 ML SQ SCH (15:45)
[2019-04-29] MEDS ORDERED: BENZOCAINE/MENTH/CETYLPYRD CL 1 EACH LOZENGE MM PRN (15:45)
[2019-04-29] MEDS ORDERED: MAGNESIUM 2GM PREMIX 50ML 50 ML IV PRN (15:45)
[2019-04-29 16:00] VITALS: BP 120/49
[2019-04-29 20:00] VITALS: BP 135/51
[2019-04-29] MEDS: DOLUTEGRAVIR SODIUM 50 MG PO SCH (20:22)
[2019-04-29] MEDS: TENOFOV ALAFENAM PO SCH (20:22)
[2019-04-29] MEDS: EMTRICITABINE PO SCH (20:22)
[2019-04-29 23:12] VITALS: BP 131/71
[2019-04-30 03:56] VITALS: BP 136/67
[2019-04-30] MEDS: ZOSYN 3.375GM+NS 50ML 50 ML IV SCH ×3 (04:13→20:11)
[2019-04-30 06:42] LABS: HEMATOCRIT 27.9 % (42-54); MEAN CORPUSCULAR HEMOGLOBIN 27.9 pg (27.0-33.0); MEAN CORPUSCULAR HGB CONC 34.3 g/dL (32.0-36.0); MEAN CORPUSCULAR VOLUME 81.2 fL (79-99); PLATELET COUNT (AUTO) 455 K/uL (130-400); RED BLOOD CELL COUNT(AUTO) 3.44 MIL/uL (4.50-6.20); RED CELL DISTRIBUTION WIDTH 15.3 % (11.0-15.5); WHITE BLOOD COUNT (AUTO) 6.7 K/uL (4.8-10.8)
[2019-04-30 06:52] LABS: CREATININE 1.7 mg/dL (0.5-1.5); POTASSIUM 3.8 mmol/L (3.5-5.1)
[2019-04-30 08:03] VITALS: BP_SYST 186; BP_SYST 187; BP_DIAS 67; BP_DIAS 99
[2019-04-30] MEDS: OXCARBAZEPINE 300 MG TAB PO SCH (08:47)
[2019-04-30] MEDS: METOPROLOL TARTRATE 25 MG TAB PO SCH ×2 (08:47→21:45)
[2019-04-30] MEDS: ASPIRIN 81MG TAB.CHEW PO SCH (08:48)
[2019-04-30] MEDS: LISINOPRIL 40 MG TABLET PO SCH (08:48)
[2019-04-30] MEDS: BUPROPION HCL 150 MG TABLET.SA PO SCH (08:49)
[2019-04-30] MEDS: DULOXETINE HCL 30 MG CAP PO SCH ×2 (08:49→21:44)
[2019-04-30] MEDS: RISPERIDONE 1 MG TABLET PO SCH ×2 (08:49→21:43)
[2019-04-30] MEDS: ENOXAPARIN SODIUM 30 MG/0.3 ML SQ SCH (08:50)
[2019-04-30] MEDS: VANCOMYCIN 1GM+NS 250ML 250 ML IV SCH ×2 (09:00→21:43)
[2019-04-30 11:16] VITALS: BP 165/67
[2019-04-30 15:51] VITALS: BP 149/61
[2019-04-30] MEDS: LACTULOSE 20 GM/30 ML UDCUP PO PRN ×2 (16:32→21:53)
--- NOTE | 2019-04-30 17:08 | NUR ---
DCP UPDATE: Spoke w Dr. Parsons and Fabby this afternoon regarding PT eval and recommendations. Informed them that per PT, pt is currently not safe to return home w poor trunk control, unable to sit @ EOB without assistance. Pt's spouse Britt is currently admitted @ [facility]. Per pt's mother in law Karen, she is not able to take pt home if not ambulating. She mentions that pt's spouse remains admitted @ [facility] and will not be discharged until poss. or Wednesday. She mentions that at this time, Britt is not able to care for pt or make any medical decisions. Per Dr. Parsons ok to refer to SNF for poss woundcare/IV ABX. F/u w pt this afternoon to discuss SNF recommendations, he continues w 1:1 sitter. Pt very groggy. Next of kin not avail. will have CM follow up in am regarding consent for SNF.
[2019-04-30 19:00] VITALS: BP 127/52
[2019-04-30] MEDS: DOLUTEGRAVIR SODIUM 50 MG PO SCH (19:50)
[2019-04-30] MEDS: TENOFOV ALAFENAM PO SCH (19:51)
[2019-04-30] MEDS: EMTRICITABINE PO SCH (19:51)
[2019-04-30] MEDS: BENZTROPINE MESYLATE 0.5 MG TAB PO SCH (21:43)
[2019-04-30] MEDS: ZIPRASIDONE HCL 80 MG CAPSULE PO SCH (21:43)
[2019-04-30 23:00] VITALS: BP 136/54
[2019-05-01] VITALS (8 sets, daily range): BP systolic 144–179; BP diastolic 55–101
[2019-05-01] MEDS: ZOSYN 3.375GM+NS 50ML 50 ML IV SCH ×3 (04:10→22:30)
[2019-05-01 05:04] LABS: HEMATOCRIT 29.9 % (42-54); MEAN CORPUSCULAR HEMOGLOBIN 27.9 pg (27.0-33.0); MEAN CORPUSCULAR HGB CONC 34.1 g/dL (32.0-36.0); MEAN CORPUSCULAR VOLUME 81.8 fL (79-99); PLATELET COUNT (AUTO) 485 K/uL (130-400); RED BLOOD CELL COUNT(AUTO) 3.66 MIL/uL (4.50-6.20); RED CELL DISTRIBUTION WIDTH 14.9 % (11.0-15.5); WHITE BLOOD COUNT (AUTO) 7.5 K/uL (4.8-10.8)
[2019-05-01 05:18] LABS: CREATININE 1.7 mg/dL (0.5-1.5); POTASSIUM 3.9 mmol/L (3.5-5.1)
--- NOTE | 2019-05-01 05:45 | NUR ---
CONFUSION-PATIENT SUDDENLY STARTED TO BECOME RESTLESS, CONFUSED, ARGUMENTATIVE AND STATES HE WANTS TO GO HOME RIGHT NOW. STAFF ATTEMPTED TO HELP CALM HIM DOWN, BUT STARTED SCOOTING DOWN IN BED AND KICKING WHEN APPROACHED. ADMINISTERED 0900 DOSE OF RISPERDAL 1MG EARLY. WILL CONTINUE TO MONITOR. HE THEN STARTED TO TRY AND GET OUT OF BED, PLACING HIS LEGS OVER THE RAILS, SIDERAILS PADDED FOR SAFETY. PATIENT HAS REMAINED WITH 2:1 SITTER MONITORING AND WILL CONTINUE TO MONITOR.
[2019-05-01] MEDS: RISPERIDONE 1 MG TABLET PO SCH ×2 (05:51→22:38)
[2019-05-01] MEDS: OXCARBAZEPINE 300 MG TAB PO SCH ×3 (09:00→22:38)
[2019-05-01] MEDS: BUPROPION HCL 150 MG TABLET.SA PO SCH (09:09)
[2019-05-01] MEDS: METOPROLOL TARTRATE 25 MG TAB PO SCH ×2 (09:10→22:38)
[2019-05-01] MEDS: LISINOPRIL 40 MG TABLET PO SCH (09:10)
[2019-05-01] MEDS: DULOXETINE HCL 30 MG CAP PO SCH ×2 (09:11→22:38)
[2019-05-01] MEDS: ASPIRIN 81MG TAB.CHEW PO SCH (09:11)
[2019-05-01] MEDS: VANCOMYCIN 1GM+NS 250ML 250 ML IV SCH (09:12)
[2019-05-01] MEDS: ENOXAPARIN SODIUM 30 MG/0.3 ML SQ SCH (09:12)
--- NOTE | 2019-05-01 11:00 | NUR ---
DYSPHAGIA EVAL COMPLETED. Pt WITH DIFFICULTY WITH SOLIDS. RECOMMEND MECHANICAL SOFT/CHOPPED, THIN LIQUIDS; PILLS WHOLE WITH LIQUIDS. RECOMMENDATIONS: 1. SKILLED SPEECH THERAPY 2-4XWK TOLERATED BY Pt. LTG#1: Pt WILL TOLERATE LEAST RESTRICTIVE DIET TO MEET NUTRITION/HYDRATION WITH NO S/S OF ASPIRATION. LTG#2: SKILLED EDUCATION Pt/FAMILY/STAFF STG#1: Pt WILL PARTICIPATE IN LARYNGEAL ELEVATION/EXCURSION EXERCISES WITH 80% ACCURACY. STG#2: Pt WILL PARTICIPATE IN TONGUE BASE RETRACTION EXERCISES WITH 80% ACCURACY. STG#3: Pt WILL PARTICIPATE IN ORAL MOTOR EXERCISES WITH 80% ACCURACY. STG#4: Pt WILL PARTICIPATE IN THERAPEUTIC TRIALS OF MECHANICAL SOFT WITH NO OVERT S/S OF ASPIRATION. STG#5: Pt WILL TOLERATE MECHANICAL SOFT/GROUND, THIN LIQUIDS WITH NO OVERT S/S OF ASPIRATIONS. STG#6: SKILLED EDUCATION Pt/FAMILY/STAFF. Addendum: 05/01/19 at 1254 by RONI REYES [facility] ST Amended: Links added.
[2019-05-01] MEDS ORDERED: DIAZEPAM 5 MG TABLET ONE (15:55)
[2019-05-01] MEDS ORDERED: DIAZEPAM 5 MG TABLET PO ONE (16:00)
[2019-05-01] MEDS ORDERED: LORAZEPAM 2 MG/ML 1 ML VIAL IVP ONE (16:15)
--- NOTE | 2019-05-01 16:17 | NUR ---
PT REFUSED VALIUM PT REFUSED VALIUM ORDER. IDALMIS ROBBINS MADE AWARE, NEW ORDER FOR ATIVAN
[2019-05-01] MEDS ORDERED: LORAZEPAM 2 MG/ML 1 ML VIAL ONE (16:20)
[2019-05-01] MEDS: TENOFOV ALAFENAM PO SCH (21:00)
[2019-05-01] MEDS: DOLUTEGRAVIR SODIUM 50 MG PO SCH (21:00)
[2019-05-01] MEDS: EMTRICITABINE PO SCH (21:00)
[2019-05-01] MEDS: DIAZEPAM 5 MG TABLET PO SCH (22:37)
[2019-05-01] MEDS: BENZTROPINE MESYLATE 0.5 MG TAB PO SCH (22:38)
[2019-05-01] MEDS: ZIPRASIDONE HCL 80 MG CAPSULE PO SCH (22:38)
[2019-05-02] MEDS: HYDRALAZINE HCL 20 MG/ML VIAL IV PRN (00:33)
[2019-05-02 03:38] VITALS: BP 153/75
[2019-05-02] MEDS: DIAZEPAM 5 MG TABLET PO SCH ×3 (05:47→22:12)
[2019-05-02 05:52] LABS: HEMATOCRIT 30.8 % (42-54); MEAN CORPUSCULAR HEMOGLOBIN 27.7 pg (27.0-33.0); MEAN CORPUSCULAR HGB CONC 33.9 g/dL (32.0-36.0); MEAN CORPUSCULAR VOLUME 81.7 fL (79-99); PLATELET COUNT (AUTO) 543 K/uL (130-400); RED BLOOD CELL COUNT(AUTO) 3.77 MIL/uL (4.50-6.20); RED CELL DISTRIBUTION WIDTH 15.1 % (11.0-15.5); WHITE BLOOD COUNT (AUTO) 6.4 K/uL (4.8-10.8)
[2019-05-02 06:02] LABS: CREATININE 1.7 mg/dL (0.5-1.5); POTASSIUM 4.2 mmol/L (3.5-5.1)
[2019-05-02 07:00] VITALS: BP 162/74
[2019-05-02 08:00] VITALS: BP 162/74
[2019-05-02 08:15] LABS: BAND NEUTROPHILS % (MANUAL) 1 % (0-2); BASOPHILS % (MANUAL) 1 % (0-2); EOSINOPHILS % (MANUAL) 1 % (1-6); LYMPHOCYTES % (MANUAL) 12 % (22-44); MONOCYTES % (MANUAL) 6 % (2-9); REACTIVE LYMPHOCYTES 1 % (0-0); SEGMENTED NEUTROPHILS % 78 % (40-70)
[2019-05-02 08:17] LABS: MAN.DIFF COMMENT-IMPRESSION MANUAL DIFFERENTIAL; PLATELET MORPHOLOGY COMMENT INCREASED
[2019-05-02] MEDS: OXCARBAZEPINE 300 MG TAB PO SCH ×2 (09:00→22:11)
[2019-05-02] MEDS: VANCOMYCIN 1GM+NS 250ML 250 ML IV SCH (09:53)
[2019-05-02] MEDS: ENOXAPARIN SODIUM 30 MG/0.3 ML SQ SCH (09:54)
[2019-05-02] MEDS: RISPERIDONE 1 MG TABLET PO SCH ×2 (09:59→22:11)
[2019-05-02] MEDS: LISINOPRIL 40 MG TABLET PO SCH (09:59)
[2019-05-02] MEDS: DULOXETINE HCL 30 MG CAP PO SCH ×2 (10:00→22:12)
[2019-05-02] MEDS: METOPROLOL TARTRATE 25 MG TAB PO SCH ×2 (10:00→22:12)
[2019-05-02] MEDS: ASPIRIN 81MG TAB.CHEW PO SCH (10:00)
--- NOTE | 2019-05-02 10:00 | NUR ---
SWALLOW TREATMENT COMPLETED. S: Pt REQUIRED COAXING TO ALERT AND PARTICIPATE. PER NURSING. Pt GIVEN MEDICATIONS LAST NIGHT THAT HAVE NOT WORN OFF TODAY. Pt RAISED TO 90 DEGREES BY SITTER AND FLATWORK FOLDER. O: Pt COOPERATIVE AT THE TIME OF THE SESSION. Pt CURRENTLY TARGETING SWALLOWING GOALS. RESULTS ARE FOLLOWS: STG#1: Pt WILL PARTICIPATE IN LARYNGEAL ELEVATION/EXCURSION EXERCISES WITH 80% ACCURACY: NOT TARGETED STG#2: Pt WILL PARTICIPATE IN TONGUE BASE RETRACTION EXERCISES WITH 80% ACCURACY:NOT TARGETED STG#3: Pt WILL PARTICIPATE IN ORAL MOTOR EXERCISES WITH 80% ACCURACY:30% ACCURACY GIVEN MAX CUES STG#4: Pt WILL PARTICIPATE IN THERAPEUTIC TRIALS OF MECHANICAL SOFT WITH NO OVERT S/S OF ASPIRATION: PT WITH COUGH RESPONSE AND INCREASED MASTICATION TIME. RESIDUE IN ORAL CAVITY CLEARED WITH LIQUID WASH. STG#5: Pt WILL TOLERATE MECHANICAL SOFT/GROUND, THIN LIQUIDS WITH NO OVERT S/S OF ASPIRATIONS: Pt REQUIRES ASSISTANCE FOR VOLUME CONTROL. TOLERATING DIET WHEN ALERT AND AWAKE DURING P.O., SEATED AT 90 DEGREES IN BED. STG#6: SKILLED EDUCATION Pt/FAMILY/STAFF.: EDUCATION FOR SITTER PROVIDED ON SAFE SWALLOW PRECAUTIONS INCLUDING POSTURE AT 90 DEGREES, SLOW RATE, ALTERNATE BITES AND SIP. A: Pt TOLERATING DIET NO OVERT S/S OF ASPIRATION. P: RECOMMEND CONTINUED SKILLED SPEECH THERAPY TARGETING SWALLOWING 2-4XWK. FLATWORK FOLDER COORDINATED CARE WITH NURSE LEE. NO FAMILY PRESENT AT THE TIME OF THE SESSION. Addendum: 05/02/19 at [address] Amended: Links added.
[2019-05-02] MEDS: BUPROPION HCL 150 MG TABLET.SA PO SCH (10:01)
[2019-05-02 12:00] VITALS: BP 179/80
[2019-05-02] MEDS: ZOSYN 3.375GM+NS 50ML 50 ML IV SCH ×2 (12:54→17:44)
--- NOTE | 2019-05-02 13:30 | NUR ---
SPOUSE AT BEDSIDE. STATES WANTS TO TAKE PT HOME, HAS PROVIDER COLE, HOME IS SAFE, PT IS THERE NOW TO PROVIDE FOR HIS NEEDS, STATES HENNY VERY ABLE TO HELP WITH PT. TURNING AND MOVING. TITLE XIX FAXED TO [facility] FOR WHEELCHAIR W LEG REST/ REMOVEABLE ARM RESTS\PLAN FOR DC IN AM AFTER DANIA DRAINS Addendum: 05/02/19 at 1648 by CARLOS REYNOSO RN CM Amended: Links added.
--- NOTE | 2019-05-02 14:31 | NUR ---
RD FOLLOW UP Pt tolerating 75gm CC, Finely chopped diet with no report of GI distress. Poor PO at 25%. Recommend to continue current dieto order. Recommend to add Glucerna with meals. Pt LBM 05/01. Pt monitored labs: Cr 1.7, GFR 54, Alb 2.6. RD to continue to monitor. Please notify RD as additional nutrition concerns arise. Thank you. Addendum: 05/02/19 at [address] Amended: Links added.
--- NOTE | 2019-05-02 14:50 | NUR ---
DR MUIR PAGED DR MUIR PAGEChetna REGARDING TRANSFERING OF SERVICES/CARE TO HIM ORDERED BY HOSPITALISTS. DR MUIR PAGER NOT ACCEPTING MESSAGES. WILL FOLLOW UP
[2019-05-02 16:00] VITALS: BP 173/80
--- NOTE | 2019-05-02 16:53 | NUR ---
DR MUIR OFFICE PAGED DR MUIR OFFICE PAGED- SPOKE TO AXEL- STATED SHE WILL RELAY MESSAGE TO AND HE WILL CALL BACK. PENDING CALL BACK
--- NOTE | 2019-05-02 18:26 | NUR ---
DR STOCKTON IN FACILITY FOR WOUND CARE DANIA DRAINS REMOVED TO BILATERAL FEET. WOUND CARE PROVIDED BY DR STOCKTON. PER MAHIN STILL NONWEIGHT BEARING TO BILATERAL FEET. NOTED AND CARREID OUT
[2019-05-02 20:03] VITALS: BP 156/75
[2019-05-02] MEDS: DOLUTEGRAVIR SODIUM 50 MG PO SCH (20:03)
[2019-05-02] MEDS: TENOFOV ALAFENAM PO SCH (20:03)
[2019-05-02] MEDS: EMTRICITABINE PO SCH (20:03)
[2019-05-02] MEDS: ZIPRASIDONE HCL 80 MG CAPSULE PO SCH (22:11)
[2019-05-02] MEDS: BENZTROPINE MESYLATE 0.5 MG TAB PO SCH (22:12)
[2019-05-03 00:16] VITALS: BP 179/75
[2019-05-03] MEDS: ACETAMINOPHEN 325 MG TAB PO PRN (02:05)
[2019-05-03 03:51] VITALS: BP 194/79
[2019-05-03] MEDS: ZOSYN 3.375GM+NS 50ML 50 ML IV SCH ×3 (04:31→21:06)
[2019-05-03 05:21] LABS: CREATININE 1.6 mg/dL (0.5-1.5); POTASSIUM 3.9 mmol/L (3.5-5.1)
[2019-05-03 05:41] LABS: HEMATOCRIT 32.2 % (42-54); MEAN CORPUSCULAR HEMOGLOBIN 26.8 pg (27.0-33.0); MEAN CORPUSCULAR HGB CONC 33.1 g/dL (32.0-36.0); MEAN CORPUSCULAR VOLUME 81.1 fL (79-99); NUCLEATED RED BLOOD CELLS 0.1 % (0.0-0.19); PLATELET COUNT (AUTO) 475 K/uL (130-400); RED BLOOD CELL COUNT(AUTO) 3.97 MIL/uL (4.50-6.20); RED CELL DISTRIBUTION WIDTH 15.1 % (11.0-15.5); WHITE BLOOD COUNT (AUTO) 7.2 K/uL (4.8-10.8)
[2019-05-03 06:40] LABS: BASOPHILS % (MANUAL) 4 % (0-2); EOSINOPHILS % (MANUAL) 2 % (1-6); LYMPHOCYTES % (MANUAL) 12 % (22-44); MAN.DIFF COMMENT-IMPRESSION MANUAL DIFFERENTIAL; MONOCYTES % (MANUAL) 12 % (2-9); PLATELET MORPHOLOGY COMMENT SLIGHT INCREASED; REACTIVE LYMPHOCYTES 2 % (0-0); SEGMENTED NEUTROPHILS % 68 % (40-70)
[2019-05-03] MEDS: DIAZEPAM 5 MG TABLET PO SCH ×3 (09:00→21:05)
[2019-05-03] MEDS: OXCARBAZEPINE 300 MG TAB PO SCH ×2 (09:01→21:04)
[2019-05-03] MEDS: BUPROPION HCL 150 MG TABLET.SA PO SCH (09:01)
[2019-05-03] MEDS: DULOXETINE HCL 30 MG CAP PO SCH ×2 (09:01→21:04)
[2019-05-03] MEDS: RISPERIDONE 1 MG TABLET PO SCH ×2 (09:02→21:04)
[2019-05-03] MEDS: ASPIRIN 81MG TAB.CHEW PO SCH (09:02)
[2019-05-03] MEDS: LISINOPRIL 40 MG TABLET PO SCH (09:02)
[2019-05-03] MEDS: METOPROLOL TARTRATE 25 MG TAB PO SCH ×2 (09:02→21:04)
[2019-05-03] MEDS: ENOXAPARIN SODIUM 30 MG/0.3 ML SQ SCH (09:03)
[2019-05-03] MEDS: VANCOMYCIN 1GM+NS 250ML 250 ML IV SCH (09:03)
[2019-05-03 09:32] VITALS: BP 175/69
--- NOTE | 2019-05-03 11:26 | NUR ---
DISCUSSED NEW SWALLOWING ISSUES WITH PRIMARY RN SEE BUTTON CLAMPER NOTES CALL TO SPOUSE, ASKE DIF SHE WOULD CONSENT TO PLACEMENT, NOW, WITH THE SPEECH THERAPY THAT HE NEEDS; SHE AGREED, WITH JESUS A WITNESS, CALL TO [facility]OS[facility] PTS, NEEDS, WILL SEND PKT. CALL TO FUEL MANAGEMENT HANDLER PENDING
--- NOTE | 2019-05-03 11:50 | NUR ---
DYSPHAGIA RE-EVAL COMPLETED. +S/S OF ASPIRATION OF COUGH RESPONSE WITH THIN AND MECHANICAL SOF/GROUND DIET. RECOMMEND PUREED, NECTAR-THICK LIQUIDS; PILLS CRUSHED WITH APPLESAUCE. Addendum: 05/03/19 at 1152 by RONI REYES, [facility] Amended: Links added.
[2019-05-03 12:00] VITALS: BP 105/74
[2019-05-03 16:43] VITALS: BP 189/87
--- NOTE | 2019-05-03 18:00 | NUR ---
NO FACILITY PLACEMENT!... DCP HOME DISCHARGE TO HOME.PENDING HH AND WHEELCHAIR, STILL PENDING.. CALL TO SPOUSE TO SHARE DC PLAN CHANGE- NO ANSWER
[2019-05-03 20:00] VITALS: BP 171/92
[2019-05-03] MEDS: DOLUTEGRAVIR SODIUM 50 MG PO SCH (21:00)
[2019-05-03] MEDS: TENOFOV ALAFENAM PO SCH (21:00)
[2019-05-03] MEDS: EMTRICITABINE PO SCH (21:00)
[2019-05-03] MEDS: ZIPRASIDONE HCL 80 MG CAPSULE PO SCH (21:04)
[2019-05-03] MEDS: BENZTROPINE MESYLATE 0.5 MG TAB PO SCH (21:05)
--- NOTE | 2019-05-03 21:29 | NUR ---
TRANSFER OF CARE Report and transfer of care given by TYRONE Vang.
[2019-05-04] VITALS: BP 167/75
[2019-05-04] MEDS: ZOSYN 3.375GM+NS 50ML 50 ML IV SCH ×3 (03:38→22:38)
[2019-05-04 04:00] VITALS: BP 150/67
[2019-05-04 07:00] VITALS: BP 182/81
[2019-05-04] MEDS: DULOXETINE HCL 30 MG CAP PO SCH ×2 (09:34→22:30)
[2019-05-04] MEDS: BUPROPION HCL 150 MG TABLET.SA PO SCH (09:35)
[2019-05-04] MEDS: RISPERIDONE 1 MG TABLET PO SCH ×2 (09:35→22:30)
[2019-05-04] MEDS: ASPIRIN 81MG TAB.CHEW PO SCH (09:38)
[2019-05-04] MEDS: OXCARBAZEPINE 300 MG TAB PO SCH ×2 (09:39→22:30)
[2019-05-04] MEDS: METOPROLOL TARTRATE 25 MG TAB PO SCH ×2 (09:39→22:30)
[2019-05-04] MEDS: LISINOPRIL 40 MG TABLET PO SCH (09:39)
[2019-05-04] MEDS: ENOXAPARIN SODIUM 30 MG/0.3 ML SQ SCH (09:46)
[2019-05-04] MEDS: VANCOMYCIN 1GM+NS 250ML 250 ML IV SCH (09:47)
--- NOTE | 2019-05-04 09:49 | NUR ---
CLARIFICATION- HAS NO SNF BENEFITS, COULD GO LT C[place] AT [place] SPOKE TO [place] ON PHONE, FLATLY DECLINES TO TAKE PT HOME, CALL TO [facility] , WILL FIND OUT IF PT HAS LT BEDS AT [facility]
--- NOTE | 2019-05-04 10:30 | NUR ---
SWALLOW TREATMENT COMPLETED. S: Pt REQUIRED COAXING TO ALERT AND PARTICIPATE. NO FAMILY PRESENT AT THIS TIME. O: Pt COOPERATIVE AT THE TIME OF THE SESSION. Pt CURRENTLY TARGETING SWALLOWING GOALS. RESULTS ARE FOLLOWS: STG#1: Pt WILL PARTICIPATE IN LARYNGEAL ELEVATION/EXCURSION EXERCISES WITH 80% ACCURACY: NOT TARGETED STG#2: Pt WILL PARTICIPATE IN TONGUE BASE RETRACTION EXERCISES WITH 80% ACCURACY:NOT TARGETED STG#3: Pt WILL PARTICIPATE IN ORAL MOTOR EXERCISES WITH 80% ACCURACY:30% ACCURACY GIVEN MAX CUES STG#4: Pt WILL PARTICIPATE IN THERAPEUTIC TRIALS OF MECHANICAL SOFT WITH NO OVERT S/S OF ASPIRATION: PT WITH NO COUGH RESPONSE AND INCREASED MASTICATION TIME. IMPROVED MASTICATION AND ORAL STRENGTH PRESENT. STG#5: Pt WILL TOLERATE PUREED, NECTAR-THICK LIQUIDS WITH NO OVERT S/S OF ASPIRATIONS: Pt REQUIRES ASSISTANCE FOR VOLUME CONTROL. TOLERATING DIET WHEN ALERT AND AWAKE DURING P.O., SEATED AT 90 DEGREES IN BED. A: Pt TOLERATING DIET NO OVERT S/S OF ASPIRATION. Pt WITH IMPROVED PARTICIPATION AT THIS TIME. SET-UP ASSISTANCE REQUIRED. P: RECOMMEND CONTINUED SKILLED SPEECH THERAPY TARGETING SWALLOWING 2-4XWK. FRUIT GRADER COORDINATED CARE WITH NURSE GARCIA. NO FAMILY PRESENT AT THE TIME OF THE SESSION. Addendum: 05/04/19 at 1322 by KRISTA OLSON Amended: Links added.
[2019-05-04 11:00] VITALS: BP 156/84
[2019-05-04] MEDS: DIAZEPAM 5 MG TABLET PO SCH ×3 (11:32→22:38)
--- NOTE | 2019-05-04 15:19 | NUR ---
MET Estela NELSON AT BEDSIDE, BEFORE LUNCH WHO ASSESSED PT AND SENT ALL INFO/PKT/PASSR' CM WILL GET IN TOUCH WITH SPOUSE CONTACTED MOTHER IN LAW - SPOUSE WITH HER- THEY WERE AT AN MD APPT. UPDATED ON PLAN, ALL IN AGREEMENT NUMBER GIVEN TO LESLIE TO CONTACT LEANDRA HUNG MOTHER IN LAW ANS CAREGIVER OF SPOUSE INGA NUMBER IS [phone]
[2019-05-04 16:00] VITALS: BP 177/83
[2019-05-04 20:00] VITALS: BP 168/88
[2019-05-04] MEDS: DOLUTEGRAVIR SODIUM 50 MG PO SCH (21:00)
[2019-05-04] MEDS: EMTRICITABINE PO SCH (21:00)
[2019-05-04] MEDS: TENOFOV ALAFENAM PO SCH (21:00)
[2019-05-04] MEDS: BENZTROPINE MESYLATE 0.5 MG TAB PO SCH (22:30)
[2019-05-04] MEDS: ZIPRASIDONE HCL 80 MG CAPSULE PO SCH (22:30)
[2019-05-05] VITALS: BP 166/101
[2019-05-05 04:00] VITALS: BP_SYST 122; BP_SYST 156; BP_DIAS 66; BP_DIAS 76
[2019-05-05] MEDS: ZOSYN 3.375GM+NS 50ML 50 ML IV SCH ×2 (05:12→11:54)
[2019-05-05 08:00] VITALS: BP 182/76
[2019-05-05] MEDS: VANCOMYCIN 1GM+NS 250ML 250 ML IV SCH (09:00)
[2019-05-05] MEDS: LISINOPRIL 40 MG TABLET PO SCH (09:00)
[2019-05-05] MEDS: ENOXAPARIN SODIUM 30 MG/0.3 ML SQ SCH (09:00)
[2019-05-05] MEDS: DIAZEPAM 5 MG TABLET PO SCH ×2 (09:00→14:00)
[2019-05-05] MEDS: HYDRALAZINE HCL 20 MG/ML VIAL IV PRN (09:02)
--- NOTE | 2019-05-05 10:38 | NUR ---
cm note faxed request to medicaid hs for approval for ems, pending approval.
--- NOTE | 2019-05-05 11:48 | NUR ---
FOLLOW UP. Pt ASLEEP UPON manager produce VISIT. SENIOR SOFTWARE ENGINEER COORDINATED CARE WITH NURSE AGUILAR AT THIS TIME. PUREED, NECTAR-THICK LIQUID DIET CONTINUES TO BE RECOMMENDED. Pt WITH MOMENTS OF IMPROVED MENTAL STATUS AND ALERTNESS, HOWEVER, IT IS INCONSISTENT. SKILLED SPEECH THERAPY CONTINUES TO BE RECOMMENDED AT THIS TIME. Addendum: 05/05/19 at 1150 by RONI REYES, [facility] Amended: Links added.
[2019-05-05 12:00] VITALS: BP 124/81
--- NOTE | 2019-05-05 13:32 | NUR ---
cm note received call from aiyana with [facility] and states pt is accepted. updated primary nurse. La.
[2019-05-05] MEDS: DULOXETINE HCL 30 MG CAP PO SCH (14:07)
[2019-05-05] MEDS: BUPROPION HCL 150 MG TABLET.SA PO SCH (14:07)
[2019-05-05] MEDS: RISPERIDONE 1 MG TABLET PO SCH (14:07)
[2019-05-05] MEDS: ASPIRIN 81MG TAB.CHEW PO SCH (14:08)
[2019-05-05] MEDS: METOPROLOL TARTRATE 25 MG TAB PO SCH (14:08)
[2019-05-05] MEDS: OXCARBAZEPINE 300 MG TAB PO SCH (14:10)
[2019-05-05 16:00] VITALS: BP 164/89
--- NOTE | 2019-05-05 17:35 | NUR ---
REPORT GIVEN TO KATI WOLFF FROM [facility]
[2019-05-05 21:09] VITALS: BP 142/76
--- NOTE | 2019-05-05 21:30 | NUR ---
DISCHARGE PT PICKED UP BY EMS TO [facility], PT ALERT AND AWAKE, VITAL SIGNS STABLE, NOT IN ANY FORM OF DISTRESS.
== END 2019-05-05 21:51 | DRG 305 ==
LOC: EDH 16:52 → EDHIP 16:53 → 3AH 23:11 → 3DH 04-24 03:06
PROVIDERS: ADMIT Internal Medicine; ATTEND Internal Medicine
PROC: 0HBRXZZ Excision of Toe Nail, External Approach (ICD-10-PCS; 2019-04-21)
PROC: 0HBRXZZ Excision of Toe Nail, External Approach (ICD-10-PCS; 2019-04-21)
PROC: 0HBRXZZ Excision of Toe Nail, External Approach (ICD-10-PCS; 2019-04-21)
PROC: 0HBRXZZ Excision of Toe Nail, External Approach (ICD-10-PCS; 2019-04-21)
PROC: 0HBRXZZ Excision of Toe Nail, External Approach (ICD-10-PCS; 2019-04-21)
PROC: 0HBRXZZ Excision of Toe Nail, External Approach (ICD-10-PCS; 2019-04-21)
PROC: 0HBRXZZ Excision of Toe Nail, External Approach (ICD-10-PCS; 2019-04-21)
PROC: 0HBRXZZ Excision of Toe Nail, External Approach (ICD-10-PCS; 2019-04-21)
PROC: 0HBRXZZ Excision of Toe Nail, External Approach (ICD-10-PCS; 2019-04-21)
PROC: 0HBRXZZ Excision of Toe Nail, External Approach (ICD-10-PCS; 2019-04-21)
PROC: 0JBQ0ZZ Excision of Right Foot Subcutaneous Tissue and Fascia, Open Approach (ICD-10-PCS; 2019-04-21)
PROC: 0JBR0ZZ Excision of Left Foot Subcutaneous Tissue and Fascia, Open Approach (ICD-10-PCS; 2019-04-21)
PROC: 3E0234Z Introduction of Serum, Toxoid and Vaccine into Muscle, Percutaneous Approach (ICD-10-PCS; 2019-04-21)
PROC: 0Y6N0ZB Detachment at Left Foot, Partial 2nd Ray, Open Approach (ICD-10-PCS; 2019-04-26)
PROC: 0Y6M0ZF Detachment at Right Foot, Partial 5th Ray, Open Approach (ICD-10-PCS; principal; 2019-04-26 19:51)
DX: E11.52 Type 2 diabetes mellitus with diabetic peripheral angiopathy with gangrene (principal); G93.40 Encephalopathy, unspecified; I96 Gangrene, not elsewhere classified; E87.1 Hypo-osmolality and hyponatremia; M86.8X7 Other osteomyelitis, ankle and foot; E11.621 Type 2 diabetes mellitus with foot ulcer; E11.69 Type 2 diabetes mellitus with other specified complication; B35.1 Tinea unguium; L84 Corns and callosities; L60.2 Onychogryphosis; L03.90 Cellulitis, unspecified; L97.519 Non-pressure chronic ulcer of other part of right foot with unspecified severity; L97.529 Non-pressure chronic ulcer of other part of left foot with unspecified severity; D64.9 Anemia, unspecified; E78.5 Hyperlipidemia, unspecified; E83.42 Hypomagnesemia; F17.210 Nicotine dependence, cigarettes, uncomplicated; F20.9 Schizophrenia, unspecified; F41.9 Anxiety disorder, unspecified; I10 Essential (primary) hypertension; L02.612 Cutaneous abscess of left foot; Z21 Asymptomatic human immunodeficiency virus [HIV] infection status; Z74.01 Bed confinement status; Z83.3 Family history of diabetes mellitus; Z91.19 Patient's noncompliance with other medical treatment and regimen; Z95.820 Peripheral vascular angioplasty status with implants and grafts; Z71.6 Tobacco abuse counseling; Z23 Encounter for immunization
CPT/HCPCS: 36415; 70450; 73660; 73700; 73718; 80048; 80053; 80202; 81001; 82040; 82550; 82948; 83036; 83605; 83735; 83930; 83935; 84100; 84145; 84443; 84484; 85025; 85027; 85610; 85651; 85730; 86140; 87040; 87070; 88304; 88305; 88311; 90715; 92526; 92610; 93005; 93926; 97039; G0378; J0360; J1100; J1650; J2001; J2060; J2250; J2405; J2543; J2704; J3010; J3370; J3475; J3490; J7030

== ENCOUNTER 2019-05-22 20:05 | Inpatient (IN) | payer MEDICAID ==
[~2019-05-22] VITALS: Ht 182.9 cm; Wt 63.5 kg
[~2019-05-22 20:05] MED LIST changes: +BENZ1TAB10 PO; -CLOP75TA32 PO; +ZIPR80CA21 PO
[2019-05-22 20:47] LABS: BASOPHILS % (AUTO) 0.7 % (0.0-5.0); EOSINOPHILS % (AUTO) 3.5 % (0.0-8.0); HEMATOCRIT 28.1 % (42-54); MEAN CORPUSCULAR HEMOGLOBIN 27.1 pg (27.0-33.0); MEAN CORPUSCULAR HGB CONC 33.6 g/dL (32.0-36.0); MEAN CORPUSCULAR VOLUME 80.5 fL (79-99); MONOCYTES % (AUTO) 9.9 % (3.0-13.0); NEUTROPHILS % (AUTO) 74.9 % (40.0-77.0); PLATELET COUNT (AUTO) 515 K/uL (130-400); RED CELL DISTRIBUTION WIDTH 15.6 % (11.0-15.5)
[2019-05-22 21:05] LABS: CARBON DIOXIDE 27 mmol/L (21-32); CHLORIDE 103 mmol/L (101-111); CREATININE 1.2 mg/dL (0.5-1.5); GLOMERULAR FILTR. RATE CALC 80 mL/min (>60); GLUCOSE,RANDOM 123 mg/dL (70-105); PARTIAL THROMBOPLASTIN TIME 38.7 SEC (26.3-35.5); POTASSIUM 3.5 mmol/L (3.5-5.1); PROTHROMBIN TIME 10.5 SEC (9.6-11.6); SODIUM SERUM 142 mmol/L (136-145); UREA NITROGEN, BLOOD 16 mg/dL (7-18)
[2019-05-22 21:09] LABS: ACETAMINOPHEN 9 mcg/mL (10-29); ALANINE AMINOTRANSFERASE 28 U/L (12-78); ALBUMIN 2.5 g/dL (3.5-5.0); ALCOHOL, BLOOD < 3 mg/dL (0-10); AMMONIA 24 umol/L (11-32); ASPARTATE AMINOTRANSFERASE 25 U/L (10-37); BILIRUBIN,TOTAL 0.3 mg/dL (0.2-1.0); CREATINE KINASE, TOTAL 200 U/L (21-232); TOTAL PROTEIN, SERUM 7.1 g/dL (6.0-8.3)
[2019-05-22 21:11] LABS: SALICYLATE < 2.8 mg/dL (2.8-20.0)
[2019-05-22] MEDS ORDERED: ZOSYN 3.375GM+NS 50ML 50 ML IV ONE (21:57)
[2019-05-22] MEDS ORDERED: VANCOMYCIN 1GM+NS 250ML 250 ML IV ONE (21:57)
[2019-05-22] MEDS ORDERED: LEVOFLOXACIN 500 MG/D5W 100 ML 100 ML IV SCH (23:30)
[2019-05-23] MEDS ORDERED: LEVOFLOXACIN 500 MG/D5W 100 ML 100 ML ONE (02:26)
[2019-05-23] MEDS ORDERED: BUPR300T53 GT (03:29)
[2019-05-23] MEDS ORDERED: LACT10SO9 GT (03:29)
[2019-05-23] MEDS ORDERED: OMEP40CA13 GT (03:29)
[2019-05-23] MEDS ORDERED: TRAM50TA4 GT (03:29)
[2019-05-23] MEDS ORDERED: OXCA600T18 GT (03:29)
[2019-05-23] MEDS ORDERED: HYDR-3422 GT (03:29)
[2019-05-23] MEDS ORDERED: BENZ1TAB10 GT (03:29)
[2019-05-23] MEDS ORDERED: LISI40TA4 GT (03:29)
[2019-05-23] MEDS ORDERED: BENZ1LOZ68 GT (03:29)
[2019-05-23] MEDS ORDERED: RISP2TAB22 GT (03:29)
[2019-05-23] MEDS ORDERED: METO25TA6 GT (03:29)
[2019-05-23] MEDS ORDERED: DOLU50TA GT (03:29)
[2019-05-23] MEDS ORDERED: RISP1TAB26 GT (03:29)
[2019-05-23] MEDS ORDERED: ACET-2247 GT ×2 (03:29→03:31)
[2019-05-23] MEDS ORDERED: DULO30CA2 GT (03:29)
[2019-05-23] MEDS ORDERED: ASPI-555 GT (03:29)
[2019-05-23] MEDS ORDERED: EMTR1TAB12 GT (03:29)
[2019-05-23] MEDS ORDERED: ZIPR80CA21 GT (03:29)
[2019-05-23 05:17] LABS: BASOPHILS % (AUTO) 1.1 % (0.0-5.0); EOSINOPHILS % (AUTO) 3.9 % (0.0-8.0); LYMPHOCYTES % (AUTO) 14.3 % (21.0-51.0); MEAN CORPUSCULAR HEMOGLOBIN 27.3 pg (27.0-33.0); MEAN CORPUSCULAR HGB CONC 34.5 g/dL (32.0-36.0); MEAN CORPUSCULAR VOLUME 79.1 fL (79-99); MONOCYTES % (AUTO) 9.5 % (3.0-13.0); NEUTROPHILS % (AUTO) 71.2 % (40.0-77.0); PLATELET COUNT (AUTO) 462 K/uL (130-400); RED BLOOD CELL COUNT(AUTO) 3.29 MIL/uL (4.50-6.20); RED CELL DISTRIBUTION WIDTH 15.3 % (11.0-15.5)
[2019-05-23 05:35] LABS: CREATININE 1.1 mg/dL (0.5-1.5); POTASSIUM 3.4 mmol/L (3.5-5.1)
[2019-05-23] MEDS ORDERED: ZOSYN 3.375GM+NS 50ML 50 ML IV ONE (06:15)
--- NOTE | 2019-05-23 06:55 | NUR ---
ADMISSION Introduction was made to patient. Patient resting in bed; AA&OX2. No shortness of breath or distress; on room air. Patient states no pain or chest pain. Antibiotic is currently running on a 22 gauge right forearm. Patient will be on droplet precaution due to diagnose of PNA. Bed at its lowest and locked position with bed alarm on. Call light within reach. Encourage to call for assistance. Report will be given to day nurse.
[2019-05-23 08:08] VITALS: BP 154/77
[2019-05-23 12:00] VITALS: BP 163/78
--- NOTE | 2019-05-23 12:16 | NUR ---
DR. MUIR PAGED DR. MUIR PAGED FOR ORDERS, PENDING CALL BACK.
[2019-05-23] MEDS: ZOSYN 3.375GM+NS 50ML 50 ML IV SCH ×2 (13:47→22:48)
--- NOTE | 2019-05-23 14:59 | NUR ---
INITIAL DAUGHTER AND MOTHER IN LAW AT NURSING STATION WITH LIST OF HOME MEDS - STATES PATIENT 'WAS NOT BEING GIVEN THE HOME MEDS AT THE FACILITY AND THAT IS WHY HE GOT SO UPSET' PATIENT WAS BROUGHT TO HOSPITAL FOR AGGRESSION AND CHANGE IN MENTAL STATUS. CALL TO [facility] /[facility]- ASKING IF THEY WILL ACCEPT PATIENT BACK, PADMINI ADVISED THAT '[facility] IS WORKING SOME THING OUT' WITH [facility]' ASKED DIANNA;L DO I SEND THE REFERRAL TO [facility] OR TO [facility]? SHE STATE OK TO SEND OT BOTH, AND THAT SHE COULD NOT TELL ME IF THE DON FROM [facility] WOULD ACCEPT THE PATIENT BACK Addendum: 05/23/19 at 1505 by CARLOS REYNOSO RN CM Amended: Links added.
[2019-05-23 16:00] VITALS: BP 176/64
--- NOTE | 2019-05-23 18:39 | NUR ---
Nutrition Intervention: Nutrition consult due to pt. with PEG tube. Pt. NPO. Labs reviewed(Alb 2.5, BG 100). LBM: Not available. BMI: 19, appropriate. Recommendations: 1) Rec. TF with Glucerna 1.5@20ml/hr, increasing rate by 5ml every 5 hrs. to goal rate of 55ml/hr. 2) Flush with 125ml free water every 4 hrs. 3) Continue to monitor pt's nutritional status. 4) Consult RD as nutrition concerns arise. Addendum: 05/23/19 at [address] Amended: Links added.
[2019-05-23] MEDS ORDERED: LACTULOSE 20 GM/30 ML UDCUP GT PRN (20:15)
[2019-05-23] MEDS ORDERED: BENZOCAINE/MENTH/CETYLPYRD CL 1 EACH LOZENGE MM PRN (20:15)
[2019-05-23] MEDS: TENOFOV ALAFENAM PO SCH (21:00)
[2019-05-23] MEDS: TRAMADOL HCL 50 MG TABLET GT SCH (21:00)
[2019-05-23] MEDS: **HM**(Dolutegravir Sodium (Tivicay) 50 MG PO SCH (21:00)
[2019-05-23] MEDS: EMTRICITABINE PO SCH (21:00)
[2019-05-23] MEDS: LACTULOSE 20 GM/30 ML UDCUP GT SCH (22:47)
[2019-05-23] MEDS: LEVOFLOXACIN 500 MG/D5W 100 ML 100 ML IV SCH (22:48)
[2019-05-23] MEDS: OXCARBAZEPINE 300 MG TAB PO SCH (22:49)
[2019-05-23] MEDS: ZIPRASIDONE HCL 80 MG CAPSULE GT SCH (22:49)
[2019-05-23] MEDS: METOPROLOL TARTRATE 25 MG TAB GT SCH (22:49)
[2019-05-23] MEDS: PANTOPRAZOLE SODIUM 40 MG TABLET.DR PO SCH (22:49)
[2019-05-23] MEDS: RISPERIDONE 1 MG TABLET PO SCH (22:49)
[2019-05-23] MEDS: DULOXETINE HCL 30 MG CAP GT SCH (22:50)
[2019-05-23] MEDS: LISINOPRIL 40 MG TABLET GT SCH (22:50)
[2019-05-23] MEDS ORDERED: BENZTROPINE MESYLATE 0.5 MG TAB ONE ×2 (22:53→22:57)
[2019-05-23] MEDS: BENZTROPINE MESYLATE 0.5 MG TAB PO SCH (22:55)
[2019-05-24] VITALS (15 sets, daily range): BP systolic 160–186; BP diastolic 74–91
[2019-05-24] MEDS: ZOSYN 3.375GM+NS 50ML 50 ML IV SCH ×3 (05:33→20:59)
[2019-05-24] MEDS: ASPIRIN 81 MG EC TAB GT SCH (09:20)
[2019-05-24] MEDS: RISPERIDONE 1 MG TABLET GT SCH (09:20)
[2019-05-24] MEDS: TRAMADOL HCL 50 MG TABLET GT SCH ×2 (09:20→21:00)
[2019-05-24] MEDS: BUPROPION HCL 150 MG TABLET.SA PO SCH (09:20)
[2019-05-24] MEDS: DULOXETINE HCL 30 MG CAP GT SCH ×2 (09:21→20:58)
[2019-05-24] MEDS: OXCARBAZEPINE 300 MG TAB PO SCH ×2 (09:21→20:59)
[2019-05-24] MEDS: METOPROLOL TARTRATE 25 MG TAB GT SCH ×2 (09:21→20:59)
[2019-05-24] MEDS: LACTULOSE 20 GM/30 ML UDCUP GT SCH ×2 (09:21→21:01)
--- NOTE | 2019-05-24 11:33 | NUR ---
CHART CHECK COMPLETED. Pt IS A 59 YEAR OLD MALE ADMITTED SECONDARY TO PNEUMONIA AND MENTAL STATUS CHANGE. Pt WAS DISCHARGED FROM THIS FACILITY 05/05/19. Pt DISCHARGED ON PUREED, NECTAR-THICK LIQUIDS. Pt CURRENTLY NPO,PEG TUBE. PLEASE CONSIDER SKILLED SPEECH THERAPY AT THIS TIME. BRICK YARD HAND COORDINATED WITH NURSE LUNA. Addendum: 05/24/19 at 1134 by RONI REYES, [facility] ST Amended: Links added.
--- NOTE | 2019-05-24 15:00 | NUR ---
[facility] CONSULT PATIENT ASSESSED REQUESTED: PATIENT PRESENTS WITH STAGE III PRESSURE ULCER TO SACRUM; [facility] RECOMMENDATIONS SUBMITTED; DR. PETER STOCKTON CONSULTED FOR LEFT 5TH TOE AND RIGHT 5TH TOE AMPUTATION SITES. Addendum: 05/25/19 at 1706 by MOLLY SCOTT LVN LVN W Amended: Links added.
--- NOTE | 2019-05-24 15:10 | NUR ---
PATIENT WAS FOUND ON THE FLOOR SITTING AND REPORTED THAT HE FELL. ACCORDING TO THE PATIENT HE TRIED TO GO TO THE BATHROOM BECAUSE HE WAS SOILED. ASSESSED THE PATIENT FOR ANY INJURY SUSTAINED FROM THE FALL, NONE NOTED. HE REPORTED THAT HE DID NOT HIT HIS HEAD, HIS BACK OR HIS HIP ON THE FLOOR BUT ONLY THE KNEE. PATIENT IS NOT IN ANY PAIN OR IN DISTRESS, NOTIFIED DR. MUIR, CHARGE NURSE, DIRECTOR AND THE HOUSESUPER. PUT THE PATIENT IN POST FALL PROTOCOL AND NEUROCHECKS Q 4 HOURS.
--- NOTE | 2019-05-24 15:10 | NUR ---
Notified pt's Britt of pt fall.
--- NOTE | 2019-05-24 16:39 | NUR ---
LONG CONVERSATION WITH SPOUSE RE DC PLANNING WHO STATES SHE COULD NOT DISCUSS DISCHARGE PLANNING BECAUSE SHE WAS EATING DINNER. SHE WANTS PATIENT TO GO TO [facility], NOT BACK TO [facility]. EXPLAINED THAT THE PATIENT WAS NOT IN NETWORK WITH [facility] AND THAT IT MAY BE CHALLENGING TO FIND A PLACE FOR HIM TO STAY. NUMBER FOR LEANDRA HARRINGTON, LEFT MESSAGE
[2019-05-24] MEDS ORDERED: CLONIDINE HCL 0.1 MG TABLET ONE (17:12)
[2019-05-24] MEDS ORDERED: CLONIDINE HCL 0.1 MG TABLET PO SCH (17:15)
[2019-05-24] MEDS ORDERED: POTASSIUM CHLORIDE 20MEQ/100ML 100 ML IV PRN (20:30)
[2019-05-24] MEDS ORDERED: LIDOCAINE HCL-MPF 1% 2ML VIAL IV PRN (20:30)
[2019-05-24] MEDS ORDERED: POTASSIUM CHLORIDE 10% ELIXIR 20 MEQ/15 ML UDCUP PO PRN (20:30)
[2019-05-24] MEDS ORDERED: POTASSIUM CHLORIDE 20 MEQ ERTAB PO PRN (20:30)
[2019-05-24] MEDS ORDERED: HONEY 1 APPL/ML TUBE TP SCH (20:30)
[2019-05-24] MEDS: LISINOPRIL 40 MG TABLET GT SCH (20:59)
[2019-05-24] MEDS: ZIPRASIDONE HCL 80 MG CAPSULE GT SCH (20:59)
[2019-05-24] MEDS: PANTOPRAZOLE SODIUM 40 MG TABLET.DR PO SCH (20:59)
[2019-05-24] MEDS: EMTRICITABINE PO SCH (21:00)
[2019-05-24] MEDS: RISPERIDONE 1 MG TABLET PO SCH (21:00)
[2019-05-24] MEDS: TENOFOV ALAFENAM PO SCH (21:00)
[2019-05-24] MEDS: **HM**(Dolutegravir Sodium (Tivicay) 50 MG PO SCH (21:00)
[2019-05-24] MEDS: BENZTROPINE MESYLATE 0.5 MG TAB PO SCH (21:00)
[2019-05-25] VITALS (10 sets, daily range): BP systolic 149–174; BP diastolic 74–83
[2019-05-25] MEDS: LEVOFLOXACIN 500 MG/D5W 100 ML 100 ML IV SCH ×2 (00:13→23:23)
[2019-05-25] MEDS: ZOSYN 3.375GM+NS 50ML 50 ML IV SCH ×3 (06:27→21:46)
[2019-05-25 07:24] LABS: HEMATOCRIT 26.2 % (42-54); MEAN CORPUSCULAR HEMOGLOBIN 27.2 pg (27.0-33.0); MEAN CORPUSCULAR HGB CONC 33.8 g/dL (32.0-36.0); MEAN CORPUSCULAR VOLUME 80.5 fL (79-99); PLATELET COUNT (AUTO) 525 K/uL (130-400); RED BLOOD CELL COUNT(AUTO) 3.25 MIL/uL (4.50-6.20); RED CELL DISTRIBUTION WIDTH 15.5 % (11.0-15.5); WHITE BLOOD COUNT (AUTO) 7.8 K/uL (4.8-10.8)
[2019-05-25 07:44] LABS: CREATININE 1.2 mg/dL (0.5-1.5); POTASSIUM 3.7 mmol/L (3.5-5.1)
[2019-05-25] MEDS: LACTULOSE 20 GM/30 ML UDCUP GT SCH ×2 (09:00→21:47)
[2019-05-25] MEDS: METOPROLOL TARTRATE 25 MG TAB GT SCH ×2 (10:18→21:48)
[2019-05-25] MEDS: TRAMADOL HCL 50 MG TABLET GT SCH ×2 (10:18→21:49)
[2019-05-25] MEDS: OXCARBAZEPINE 300 MG TAB PO SCH ×2 (10:18→21:48)
[2019-05-25] MEDS: ASPIRIN 81 MG EC TAB GT SCH (10:18)
[2019-05-25] MEDS: DULOXETINE HCL 30 MG CAP GT SCH ×2 (10:19→21:48)
[2019-05-25] MEDS: RISPERIDONE 1 MG TABLET GT SCH (10:19)
[2019-05-25] MEDS: BUPROPION HCL 150 MG TABLET.SA PO SCH (10:19)
[2019-05-25] MEDS ORDERED: HONEY 1 APPL/ML TUBE TP PRN (11:45)
--- NOTE | 2019-05-25 16:32 | NUR ---
RD NOTIFICATION/ FOLLOW UP Diet: Glucerna 1.5 at 40mls/hr, Flushes at 125mls Q6. Goal rate is 55mls/hr. Pt tolerating well with no residuals as per RN. LBM: 05/25/19. Buttock ulcer, no edema noted. RD recommends continue TF recommendations currently in place. Will continue to monitor tolerance, labs, and residuals. RD will follow up as needed. Amna Aguila MS, RDN Addendum: 05/25/19 at [address] Amended: Links added.
[2019-05-25] MEDS: EMTRICITABINE PO SCH (21:00)
[2019-05-25] MEDS: **HM**(Dolutegravir Sodium (Tivicay) 50 MG PO SCH (21:00)
[2019-05-25] MEDS: TENOFOV ALAFENAM PO SCH (21:00)
[2019-05-25] MEDS: LISINOPRIL 40 MG TABLET GT SCH (21:47)
[2019-05-25] MEDS: ZIPRASIDONE HCL 80 MG CAPSULE GT SCH (21:47)
[2019-05-25] MEDS: RISPERIDONE 1 MG TABLET PO SCH (21:48)
[2019-05-25] MEDS: PANTOPRAZOLE SODIUM 40 MG TABLET.DR PO SCH (21:48)
[2019-05-25] MEDS: BENZTROPINE MESYLATE 0.5 MG TAB PO SCH (21:57)
[2019-05-26] VITALS (7 sets, daily range): BP systolic 141–158; BP diastolic 67–85
[2019-05-26] MEDS: ZOSYN 3.375GM+NS 50ML 50 ML IV SCH ×3 (05:36→21:47)
[2019-05-26] MEDS: ASPIRIN 81 MG EC TAB GT SCH (10:27)
[2019-05-26] MEDS: OXCARBAZEPINE 300 MG TAB PO SCH ×2 (10:27→21:47)
[2019-05-26] MEDS: LACTULOSE 20 GM/30 ML UDCUP GT SCH ×2 (10:27→21:46)
[2019-05-26] MEDS: DULOXETINE HCL 30 MG CAP GT SCH (10:27)
[2019-05-26] MEDS: RISPERIDONE 1 MG TABLET GT SCH (10:27)
[2019-05-26] MEDS: METOPROLOL TARTRATE 25 MG TAB GT SCH ×2 (10:27→21:47)
[2019-05-26] MEDS: BUPROPION HCL 150 MG TABLET.SA PO SCH (10:28)
[2019-05-26] MEDS: TRAMADOL HCL 50 MG TABLET GT SCH (10:28)
--- NOTE | 2019-05-26 12:06 | NUR ---
CAN WE CHANGE TO OUT PATIENT HOME MEDS? ANTI PYSCHOTIC MEDS WERE FOLLOW OXCARBAZEPINE 600MG BID ZIPRASIDONE 80 MG HS BENZOTROPINE 1 MG HS MOTHER IN LAW STATES THESE ARE THE MEDS FROM [facility] THAT THE PATIENT HAS BEEN ON LONGE TERM- NO OTHER MEDS NEEDS, WAS VERY STABEL ON THSESE MEDS, THINKS THAT THE ADDITION OF OTHER MEDICATION ON LAST ADMIT CAUSED ALL THE TROUBLES, CALL TO DR. MUIR, NO ANSWER CALL TO OG DIRECTOR TO CONSTACT DR. MUIR TO SEE IF WE CAN RESME PTS HOME MEDS FORM PRIOR TO LAST ADMIT- FROM [facility]; AND SEE OVER WEEKEND IF REAMINS STABLE ON HOME MEDS. TERESA CM- DIRECTOR THAT CALL RECD FORM INSURANCE THIS MORN FOR DC PLANDREWING- THEY ARE WILLING TO DO [facility] FOR REHAB
--- NOTE | 2019-05-26 17:10 | NUR ---
DR. MUIR HERE, MED ORDERS RECD, DC PLAN DISCUSSED DISCUSSED WITH THAT FACT THAT PATIENTS FAMILY WANTED HIM TO BE ON HIS MAINTENANCE MEDS THAT HE WAS ON FOR YEARS AND YEARS, MED LIST FROM [facility] SUPPLIED BY [facility], REVIWED BY MD, IF PT IS STBLE ON HOME MEDS ON THE WEEKEND, PERHAPS PATIENT CAN GO TO [facility]? ORDER RECD FOR REFERRAL, RELAYED TO MD THAT PATIENT'S INSURANCE IS IN AGREEMENT WITH [facility] A POSSIBLE DC DISPOSITION. WILL SEND PRELIM INFO THIS EVENING. CM IN AM TO FOLLOW UP Addendum: 05/26/19 at 1812 by CARLOS REYNOSO RN CM Amended: Links added.
[2019-05-26] MEDS: EMTRICITABINE PO SCH (21:00)
[2019-05-26] MEDS: TENOFOV ALAFENAM PO SCH (21:00)
[2019-05-26] MEDS: **HM**(Dolutegravir Sodium (Tivicay) 50 MG PO SCH (21:00)
[2019-05-26] MEDS: LISINOPRIL 40 MG TABLET GT SCH (21:47)
[2019-05-26] MEDS: BENZTROPINE MESYLATE 0.5 MG TAB PO SCH (21:47)
[2019-05-26] MEDS: ZIPRASIDONE HCL 80 MG CAPSULE GT SCH (21:47)
[2019-05-26] MEDS: LANSOPRAZOLE 15 MG SOLU TAB PEG SCH (22:07)
[2019-05-27] MEDS: LEVOFLOXACIN 500 MG/D5W 100 ML 100 ML IV SCH ×2 (01:57→23:29)
[2019-05-27 03:50] VITALS: BP 140/78
[2019-05-27 04:39] LABS: HEMATOCRIT 27.7 % (42-54); MEAN CORPUSCULAR HEMOGLOBIN 26.8 pg (27.0-33.0); MEAN CORPUSCULAR HGB CONC 33.3 g/dL (32.0-36.0); MEAN CORPUSCULAR VOLUME 80.6 fL (79-99); PLATELET COUNT (AUTO) 537 K/uL (130-400); RED BLOOD CELL COUNT(AUTO) 3.44 MIL/uL (4.50-6.20); RED CELL DISTRIBUTION WIDTH 15.4 % (11.0-15.5); WHITE BLOOD COUNT (AUTO) 8.5 K/uL (4.8-10.8)
[2019-05-27 04:51] LABS: CREATININE 1.3 mg/dL (0.5-1.5); POTASSIUM 4.3 mmol/L (3.5-5.1)
[2019-05-27] MEDS: ZOSYN 3.375GM+NS 50ML 50 ML IV SCH ×2 (05:29→13:23)
[2019-05-27 07:30] VITALS: BP 131/63
[2019-05-27] MEDS: OXCARBAZEPINE 300 MG TAB PO SCH ×2 (09:00→21:51)
[2019-05-27] MEDS: METOPROLOL TARTRATE 25 MG TAB GT SCH ×2 (09:00→21:51)
[2019-05-27] MEDS: LACTULOSE 20 GM/30 ML UDCUP GT SCH (09:00)
[2019-05-27] MEDS: ASPIRIN 81 MG EC TAB GT SCH (09:00)
[2019-05-27] MEDS: BUPROPION HCL 150 MG TABLET.SA PO SCH (09:00)
[2019-05-27 11:00] VITALS: BP 155/82
--- NOTE | 2019-05-27 11:11 | NUR ---
PT UPDATE Pt provided with oral care, peg site care, wound care and tube feeding started, Pt tolerated all care well, No c/o pain, pt will continue to be monitored.
[2019-05-27 16:00] VITALS: BP 145/61
[2019-05-27 20:00] VITALS: BP 148/80
[2019-05-27] MEDS: **HM**(Dolutegravir Sodium (Tivicay) 50 MG PO SCH (21:00)
[2019-05-27] MEDS: TENOFOV ALAFENAM PO SCH (21:00)
[2019-05-27] MEDS ORDERED: AMOXICILLIN 500 MG CAPSULE PO SCH (21:00)
[2019-05-27] MEDS: EMTRICITABINE PO SCH (21:00)
[2019-05-27] MEDS: LISINOPRIL 40 MG TABLET GT SCH (21:50)
[2019-05-27] MEDS: ZIPRASIDONE HCL 80 MG CAPSULE GT SCH (21:50)
[2019-05-27] MEDS: LANSOPRAZOLE 15 MG SOLU TAB PEG SCH (21:50)
[2019-05-27] MEDS: BENZTROPINE MESYLATE 0.5 MG TAB PO SCH (21:52)
[2019-05-27 23:44] VITALS: BP 146/74
[2019-05-28] VITALS (14 sets, daily range): BP systolic 133–186; BP diastolic 56–88
[2019-05-28] MEDS: OXCARBAZEPINE 300 MG TAB PO SCH ×2 (10:26→21:12)
[2019-05-28] MEDS: METOPROLOL TARTRATE 25 MG TAB GT SCH ×2 (10:26→21:13)
[2019-05-28] MEDS: ASPIRIN 81 MG EC TAB GT SCH (10:26)
[2019-05-28] MEDS: BUPROPION HCL 150 MG TABLET.SA PO SCH (10:26)
--- NOTE | 2019-05-28 11:23 | NUR ---
[facility] F/U: Christopher Pritchard from [facility], states no referral received for pt as of this time. Clinical/referral faxed to [facility] this am. Per Macho will be by to evaluate pt. CM to continue to follow.
--- NOTE | 2019-05-28 14:55 | NUR ---
JASON: Received call from Macho GOMEZ, he mentions that they are not in network w Medicaid [facility]. Informed him that per previous CM note, she had received call from insurance and they were willing to consider [facility] for Rehab. Macho mentions that he will follow up w PADMINI Sanabria tomorrow.
[2019-05-28] MEDS: AMOXICILLIN 250 MG/5 ML 80ML BOTTLE PO SCH ×2 (15:17→21:15)
[2019-05-28] MEDS: EMTRICITABINE PO SCH (19:38)
[2019-05-28] MEDS: **HM**(Dolutegravir Sodium (Tivicay) 50 MG PO SCH (19:38)
[2019-05-28] MEDS: TENOFOV ALAFENAM PO SCH (19:38)
--- NOTE | 2019-05-28 19:40 | NUR ---
BED ALARM WENT OFF, SAMMY MARROQUIN RN STANDING CLOSE TO PATIENT'S ROOM STATES SHE SAW PATIENT HAD LEGS OVER THE SIDERAILS, PATIENT VERY THIN EASILY SQUEEZED THROUGH THE SIDERAILS. BY THE TIME WE ENTERED THE ROOM, PATIENT WAS ON THE FLOOR LANDING ON HIS KNEES. PATIENT DENIES HITTING HIS HEAD AND WAS ASSISTED BACK TO BED, HE ATTEMPTED TO HELP, BUT DRESSINGS TO BILATERAL FEET MADE HIS FEET SLIPPERY. IV AND G-TUBE INTACT AND NO INJURIES WERE NOTED. GREENSKEEPER, WOOD GRAINER, DR MUIR AND WERE ALL NOTIFIED. POST-OP VITAL SIGNS AND NEURO CHECKS DONE. WILL CONTINUE TO MONITOR.
[2019-05-28] MEDS: LANSOPRAZOLE 15 MG SOLU TAB PEG SCH (21:12)
[2019-05-28] MEDS: ZIPRASIDONE HCL 80 MG CAPSULE GT SCH (21:12)
[2019-05-28] MEDS: LISINOPRIL 40 MG TABLET GT SCH (21:13)
[2019-05-28] MEDS: BENZTROPINE MESYLATE 0.5 MG TAB PO SCH (21:42)
[2019-05-28] MEDS: LEVOFLOXACIN 500 MG/D5W 100 ML 100 ML IV SCH (23:02)
[2019-05-29] VITALS (7 sets, daily range): BP systolic 123–154; BP diastolic 71–86
[2019-05-29] MEDS: HALOPERIDOL LACTATE 5 MG/ML VIAL IM PRN ×2 (00:38→23:34)
--- NOTE | 2019-05-29 01:30 | NUR ---
PATIENT INCREASINGLY CONFUSED/RESTLESS/IMPULSIVE. DESPITE REPEATED MULTIPLE VERBAL CUES, PATIENT KEEPS PULLING/ON SIDERAILS AND PLACING LEGS OVER SIDERAILS, REPEATEDLY SETTING OFF BED ALARM WHILE ATTEMPTING TO GET OUT OF BED. PLACED ON 1:1 SITTER MONITORING. NOTE: NO COMBATIVENESS NOTED DURING THIS SHIFT.
[2019-05-29] MEDS: ASPIRIN 81 MG EC TAB GT SCH (09:46)
[2019-05-29] MEDS: BUPROPION HCL 150 MG TABLET.SA PO SCH (09:46)
[2019-05-29] MEDS: OXCARBAZEPINE 300 MG TAB PO SCH ×2 (09:46→22:43)
[2019-05-29] MEDS: AMOXICILLIN 250 MG/5 ML 80ML BOTTLE PO SCH ×3 (09:46→22:48)
[2019-05-29] MEDS: METOPROLOL TARTRATE 25 MG TAB GT SCH ×2 (09:47→22:44)
--- NOTE | 2019-05-29 11:00 | NUR ---
REFERRAL TO [facility] SENT REFERRAL TO [facility] EARLIER TODAY, EXPLAINED TO FAMILY /SPOUSE THAT IT WOULD BE DIFFICULT TO FIND A BED FOR THIS PATIENT. REFERAL SENT INCLUDING [facility] FOR [facility]. PENDING MD ORDER THAT STATES UNLIKELY TO NEED 30+ DAYS OF NF SERVICES
--- NOTE | 2019-05-29 12:12 | NUR ---
MBSS COMPLETED. +ASPIRATION WITH THIN LIQUIDS, PENETRATION WITH PUREED (SUSPECTED). RECOMMEND THERAPEUTIC TRIALS OF PUDDING, MECHANICAL SOFT AND NECTAR-THICK LIQUIDS VIA TSP. RECOMMENDATIONS: 1.DYSPHAGIA THERAPY 3-5X WEEK TO INCREASE ORAL MOTOR STRENGTH AND PHARYNGEAL SWALLOW: LTG#1: Pt WILL TOLERATE LEAST RESTRICTIVE DIET TO MEET NUTRITION/HYDRATION WITH NO S/S OF ASPIRATION. LTG#2: SKILLED EDUCATION Pt/FAMILY/STAFF STG#1: Pt WILL PARTICIPATE IN LARYNGEAL ELEVATION/EXCURSION EXERCISES WITH 80% ACCURACY. STG#2: Pt WILL PARTICIPATE IN TONGUE BASE RETRACTION EXERCISES WITH 80% ACCURACY. STG#3: Pt WILL PARTICIPATE IN ORAL MOTOR EXERCISES WITH 80% ACCURACY. STG#4: Pt WILL PARTICIPATE IN PLEASURE FEEDS OF PUDDING, NECTAR-THICK LIQUIDS AND MECHANICAL SOFT/CHOPPED (VIA TSP) CONSISTENCY WITH NO S/S OF ASPIRATION. STG#5: PT WILL PARTICIPATE IN PHARYNGEAL STRENGTHENING EXERCISES WITH 80% ACCURACY. STG#6: SKILLED EDUCATION Pt/FAMILY/STAFF. STG#7: Pt COMPLETE DRY SWALLOWS WITH TTS WITH NO ABSENT SWALLOWS. Addendum: 05/29/19 at 1218 by RONI REYES, SPT ST Amended: Links added.
--- NOTE | 2019-05-29 15:26 | NUR ---
RD NOTIFICATION/ FOLLOW UP Pt currently on Glucerna 1.5 at 55mls/hr. Flush with 125mls Q6. Pt tolerating well as per RN. ANESTHESIA TECHNICIAN recommended the following: +ASPIRATION WITH THIN LIQUIDS, PENETRATION WITH PUREED (SUSPECTED). RECOMMEND THERAPEUTIC TRIALS OF PUDDING, MECHANICAL SOFT AND NECTAR-THICK LIQUIDS. Pt able to begin pleasure feedings as tolerated as per RN. Pt with Buttocks Ulcer, no edema noted. RD recommends start pleasure feedings. Alter TF rate depending on PO intake and pt dietary needs. Monitor daily PO intake. RD will f/u to calculate daily PO intake in order to make new TF recommendations to meet pt daily dietary needs. Notify RD with any questions or concerns Ayden Ochoa, , CHUY, LD Addendum: 05/29/19 at [address] Amended: Links added.
[2019-05-29] MEDS: TENOFOV ALAFENAM PO SCH (21:00)
[2019-05-29] MEDS: **HM**(Dolutegravir Sodium (Tivicay) 50 MG PO SCH (21:00)
[2019-05-29] MEDS: EMTRICITABINE PO SCH (21:00)
[2019-05-29] MEDS: LANSOPRAZOLE 15 MG SOLU TAB PEG SCH (22:43)
[2019-05-29] MEDS: ZIPRASIDONE HCL 80 MG CAPSULE GT SCH (22:43)
[2019-05-29] MEDS: LISINOPRIL 40 MG TABLET GT SCH (22:44)
[2019-05-29] MEDS: BENZTROPINE MESYLATE 0.5 MG TAB PO SCH (22:44)
[2019-05-29] MEDS: LEVOFLOXACIN 500 MG/D5W 100 ML 100 ML IV SCH (22:45)
[2019-05-30] VITALS: BP 152/79
[2019-05-30 04:00] VITALS: BP 157/77
[2019-05-30 08:00] VITALS: BP 136/72
[2019-05-30] MEDS: ASPIRIN 81 MG EC TAB GT SCH (11:24)
[2019-05-30] MEDS: BUPROPION HCL 150 MG TABLET.SA PO SCH (11:25)
[2019-05-30] MEDS: OXCARBAZEPINE 300 MG TAB PO SCH ×2 (11:25→21:52)
[2019-05-30] MEDS: AMOXICILLIN 250 MG/5 ML 80ML BOTTLE PO SCH ×3 (11:25→21:55)
[2019-05-30] MEDS: METOPROLOL TARTRATE 25 MG TAB GT SCH ×2 (11:25→21:52)
[2019-05-30 12:00] VITALS: BP 145/73
--- NOTE | 2019-05-30 12:00 | NUR ---
SWALLOW TREATMENT COMPLETED. RECOMMEND PUREED AND HONEY-THICK LIQUIDS VIA TSP WITH MAX CUES. Pt SEATED AT 90 DEGREES IN CHAIR. Pt COOPERATIVE AND IMPULSIVE WITH TRIALS. Pt PARTICIPATED IN THERAPEUTIC TRIALS OF PUREED, NECTAR-THICK LIQUIDS. Pt WITH +S.S OF ASPIRATION OF COUGH RESPONSE WITH NECTAR-THICK LIQUIDS VIA TSP. OPERATIONS STAFF SPECIALIST SECURITY PRESENTED THERAPEUTIC TRIALS OF HONEY-THICK LIQUIDS VIA TSP WITH NO OVERT S/S OF ASPIRATION. Pt WITH NO S/S OF ASPIRATION WITH PUDDING TEXTURE. PLEASE NOTE Pt REQUIRED MAX VERBAL AND TACTILE CUES FOR SLOW RATE AND EFFORTFUL SWALLOW DURING THE SESSION. OPERATIONS STAFF SPECIALIST SECURITY EDUCATED NURSING AND SITTER ON SAFE SWALLOW PRECAUTIONS AND ON RECOMMENDED PLEASURE DIET OF PUREED, HONEY-THICK LIQUIDS. THEY VERBALIZED UNDERSTANDING AND COMPLIANCE. NO FAMILY PRESENT AT THE TIME OF THE SESSION. OPERATIONS STAFF SPECIALIST SECURITY TO CONTINUE TO FOLLOW Pt. Addendum: 05/31/19 at [address] Amended: Links added.
--- NOTE | 2019-05-30 12:45 | NUR ---
HERNANDEZ LOMELI /[facility] ORDONE[facility]- REFERRAL REP FROM [facility] AND [facility] HERE TO SEE PT, PT UP AT SIDE OF BED AND RESPONDING TO SIMPLE COMMANDS STATES THEY WILL GET BACK TO THIS CM WITH THEIR DECISION TO TAKE PATIENT
--- NOTE | 2019-05-30 14:46 | NUR ---
RD NOTIFICATION/ FOLLOW UP RD spoke to [facility] to clarify pleasure feed recommendations. Small amounts of pleasure feeds will be provided by [facility] and not by dietary. RD recommends to continue Glucerna 1.5 at 55mls/hr. Flush with 125mls Q6. Thank you. Addendum: 05/30/19 at [address] Amended: Links added.
[2019-05-30 16:00] VITALS: BP 151/56
[2019-05-30 19:18] VITALS: BP 135/63
[2019-05-30] MEDS: **HM**(Dolutegravir Sodium (Tivicay) 50 MG PO SCH (21:00)
[2019-05-30] MEDS: TENOFOV ALAFENAM PO SCH (21:00)
[2019-05-30] MEDS: EMTRICITABINE PO SCH (21:00)
[2019-05-30] MEDS: LISINOPRIL 40 MG TABLET GT SCH ×2 (21:00→21:52)
[2019-05-30] MEDS: BENZTROPINE MESYLATE 0.5 MG TAB PO SCH (21:52)
[2019-05-30] MEDS: ZIPRASIDONE HCL 80 MG CAPSULE GT SCH (21:55)
[2019-05-30] MEDS: LANSOPRAZOLE 15 MG SOLU TAB PEG SCH (21:55)
[2019-05-30] MEDS: LEVOFLOXACIN 500 MG/D5W 100 ML 100 ML IV SCH (23:03)
--- NOTE | 2019-05-30 23:35 | NUR ---
wound care cleaned toe amputations and around bilateral feet with sterile water, betadine, and wrapped around with kerlix gauze. cleaned coccyx with sterile water, betadine, and placed allevyn foam on area.
--- NOTE | 2019-05-30 23:37 | NUR ---
wound care placed medihoney on coccyx wound.
[2019-05-31] VITALS (7 sets, daily range): BP systolic 122–136; BP diastolic 51–76
--- NOTE | 2019-05-31 00:06 | NUR ---
flushed peg tube on 05/30/19 at 20:00 with 125 ml of H20 water. on 05/31/19 at 00:00 another 125 ml of water, and will flush on 05/31/19 at 04:00 am with 125 ml of water.
[2019-05-31] MEDS: HALOPERIDOL LACTATE 5 MG/ML VIAL IM PRN ×2 (03:29→23:49)
[2019-05-31 07:26] LABS: HEMATOCRIT 28.1 % (42-54); MEAN CORPUSCULAR HEMOGLOBIN 27.3 pg (27.0-33.0); MEAN CORPUSCULAR HGB CONC 34.6 g/dL (32.0-36.0); MEAN CORPUSCULAR VOLUME 78.9 fL (79-99); NUCLEATED RED BLOOD CELLS 0.1 % (0.0-0.19); PLATELET COUNT (AUTO) 547 K/uL (130-400); RED BLOOD CELL COUNT(AUTO) 3.57 MIL/uL (4.50-6.20); RED CELL DISTRIBUTION WIDTH 15.3 % (11.0-15.5); WHITE BLOOD COUNT (AUTO) 8.6 K/uL (4.8-10.8)
[2019-05-31 07:35] LABS: CREATININE 1.4 mg/dL (0.5-1.5); POTASSIUM 4.6 mmol/L (3.5-5.1)
[2019-05-31 08:20] LABS: BASOPHILS % (MANUAL) 1 % (0-2); EOSINOPHILS % (MANUAL) 2 % (1-6); LYMPHOCYTES % (MANUAL) 22 % (22-44); MONOCYTES % (MANUAL) 8 % (2-9); SEGMENTED NEUTROPHILS % 67 % (40-70)
[2019-05-31 08:21] LABS: MAN.DIFF COMMENT-IMPRESSION MANUAL DIFFERENTIAL
[2019-05-31 08:22] LABS: PLATELET MORPHOLOGY COMMENT MARKED INCREASE
[2019-05-31] MEDS: OXCARBAZEPINE 300 MG TAB PO SCH ×2 (19:32→20:04)
[2019-05-31] MEDS: METOPROLOL TARTRATE 25 MG TAB GT SCH ×2 (19:32→20:04)
[2019-05-31] MEDS: ENOXAPARIN SODIUM 30 MG/0.3 ML SQ SCH (19:32)
[2019-05-31] MEDS: BUPROPION HCL 150 MG TABLET.SA PO SCH (19:33)
[2019-05-31] MEDS: FAMOTIDINE/PF 20 MG/2 ML VIAL IV SCH (19:33)
[2019-05-31] MEDS: ASPIRIN 81 MG EC TAB GT SCH (19:33)
[2019-05-31] MEDS: LANSOPRAZOLE 15 MG SOLU TAB PEG SCH (20:04)
[2019-05-31] MEDS: BENZTROPINE MESYLATE 0.5 MG TAB PO SCH (20:04)
[2019-05-31] MEDS: ZIPRASIDONE HCL 80 MG CAPSULE GT SCH (20:04)
[2019-05-31] MEDS: LISINOPRIL 40 MG TABLET GT SCH (20:05)
[2019-05-31] MEDS: EMTRICITABINE PO SCH (20:18)
[2019-05-31] MEDS: **HM**(Dolutegravir Sodium (Tivicay) 50 MG PO SCH (20:18)
[2019-05-31] MEDS: TENOFOV ALAFENAM PO SCH (20:18)
--- NOTE | 2019-05-31 23:52 | NUR ---
HALDOL Pt is restless,attempting to get out of bed,pulling his lines.Reoriented per staff.Haldol given Im.
--- NOTE | 2019-06-01 01:52 | NUR ---
MED EFFECT Pt slept on and off,being watched per sitter as pt tends to swing his legs across the side rails,attempt to get out of bed.
[2019-06-01 03:24] VITALS: BP 151/80
[2019-06-01 08:00] VITALS: BP 132/89
[2019-06-01] MEDS: ASPIRIN 81 MG EC TAB GT SCH (10:39)
[2019-06-01] MEDS: METOPROLOL TARTRATE 25 MG TAB GT SCH ×2 (10:39→20:51)
[2019-06-01] MEDS: OXCARBAZEPINE 300 MG TAB PO SCH ×2 (10:40→20:51)
[2019-06-01] MEDS: FAMOTIDINE/PF 20 MG/2 ML VIAL IV SCH (10:40)
[2019-06-01] MEDS: BUPROPION HCL 150 MG TABLET.SA PO SCH (10:40)
[2019-06-01] MEDS: ENOXAPARIN SODIUM 30 MG/0.3 ML SQ SCH (10:41)
[2019-06-01 12:00] VITALS: BP 120/76
[2019-06-01 16:00] VITALS: BP 140/79
[2019-06-01 20:11] VITALS: BP 131/76
[2019-06-01] MEDS: LISINOPRIL 40 MG TABLET GT SCH (20:51)
[2019-06-01] MEDS: ZIPRASIDONE HCL 80 MG CAPSULE GT SCH (20:51)
[2019-06-01] MEDS: LANSOPRAZOLE 15 MG SOLU TAB PEG SCH (20:51)
[2019-06-01] MEDS: HYDROXYZINE HCL 25 MG TABLET PO PRN (20:51)
[2019-06-01] MEDS: BENZTROPINE MESYLATE 0.5 MG TAB PO SCH (20:52)
[2019-06-01] MEDS: EMTRICITABINE PO SCH (21:00)
[2019-06-01] MEDS: TENOFOV ALAFENAM PO SCH (21:00)
[2019-06-01] MEDS: **HM**(Dolutegravir Sodium (Tivicay) 50 MG PO SCH (21:00)
[2019-06-01 23:15] VITALS: BP 160/83
[2019-06-02 03:15] VITALS: BP 142/67
--- NOTE | 2019-06-02 04:44 | NUR ---
CALM Pt more calm this evening,respirations unlabored.Staff inside the room as sitter.
[2019-06-02 08:00] VITALS: BP 130/71
[2019-06-02] MEDS: BUPROPION HCL 150 MG TABLET.SA PO SCH (10:04)
[2019-06-02] MEDS: ASPIRIN 81 MG EC TAB GT SCH (10:04)
[2019-06-02] MEDS: METOPROLOL TARTRATE 25 MG TAB GT SCH ×2 (10:04→21:05)
[2019-06-02] MEDS: ENOXAPARIN SODIUM 30 MG/0.3 ML SQ SCH (10:06)
[2019-06-02] MEDS: FAMOTIDINE/PF 20 MG/2 ML VIAL IV SCH (10:06)
[2019-06-02] MEDS: OXCARBAZEPINE 300 MG TAB PO SCH ×2 (10:06→21:05)
--- NOTE | 2019-06-02 10:30 | NUR ---
DENIED AT [facility]. OFIFICIAL DENIAL AT [facility], INFORMED INGA, SPOUSE, REFERRAL TO [facility], [facility] FOR [facility] IS IN NETWORK AND WILL TAKE HIM, '' FAMILY WOULD PREFER SWAN TO [facility], ABNERHTER ASKS WHY WE CANNOT PLACE HER AND CM ADVISED HER THAT WE COULD TAKE OFF THE ONE TO ONE IF SHE WOUDL COME AND SIT AT HIS BEDSIDE. SPOUSE DECLINED TO DO SO
[2019-06-02 12:00] VITALS: BP 102/63
--- NOTE | 2019-06-02 13:48 | NUR ---
SWALLOW TREATMENT COMPLETED. RECOMMEND PUREED AND HONEY-THICK LIQUIDS VIA TSP WITH MAX CUES. Pt SEATED AT 90 DEGREES IN BED. Pt COOPERATIVE AND IMPULSIVE WITH TRIALS. Pt PARTICIPATED IN THERAPEUTIC TRIALS OF PUREED. Pt WITH NO S/S OF ASPIRATION WITH PUREED TEXTURE. PLEASE NOTE Pt REQUIRED MAX VERBAL AND TACTILE CUES FOR SLOW RATE AND EFFORTFUL SWALLOW DURING THE SESSION. HEALTH AND SAFETY MANAGER EDUCATED NURSING AND SITTER ON SAFE SWALLOW PRECAUTIONS AND ON RECOMMENDED PLEASURE DIET OF PUREED, HONEY-THICK LIQUIDS. THEY VERBALIZED UNDERSTANDING AND COMPLIANCE. NO FAMILY PRESENT AT THE TIME OF THE SESSION. HEALTH AND SAFETY MANAGER TO CONTINUE TO FOLLOW Pt. Addendum: 06/02/19 at 1349 by RONI REYES [facility] Amended: Links added.
[2019-06-02 16:00] VITALS: BP 114/67
[2019-06-02 19:20] VITALS: BP 126/73
[2019-06-02] MEDS: TENOFOV ALAFENAM PO SCH (19:26)
[2019-06-02] MEDS: EMTRICITABINE PO SCH (19:26)
[2019-06-02] MEDS: **HM**(Dolutegravir Sodium (Tivicay) 50 MG PO SCH (19:26)
[2019-06-02] MEDS: BENZTROPINE MESYLATE 0.5 MG TAB PO SCH (21:04)
[2019-06-02] MEDS: LANSOPRAZOLE 15 MG SOLU TAB PEG SCH (21:05)
[2019-06-02] MEDS: ZIPRASIDONE HCL 80 MG CAPSULE GT SCH (21:05)
[2019-06-02] MEDS: LISINOPRIL 40 MG TABLET GT SCH (21:16)
[2019-06-02 23:18] VITALS: BP 127/64
[2019-06-03 03:34] VITALS: BP 144/80
[2019-06-03 07:11] LABS: CREATININE 1.3 mg/dL (0.5-1.5); POTASSIUM 4.6 mmol/L (3.5-5.1)
[2019-06-03 08:00] VITALS: BP 149/74
[2019-06-03] MEDS: FAMOTIDINE/PF 20 MG/2 ML VIAL IV SCH (09:53)
[2019-06-03] MEDS: BUPROPION HCL 150 MG TABLET.SA PO SCH (09:53)
[2019-06-03] MEDS: ASPIRIN 81 MG EC TAB GT SCH (09:53)
[2019-06-03] MEDS: METOPROLOL TARTRATE 25 MG TAB GT SCH ×2 (09:53→21:58)
[2019-06-03] MEDS: OXCARBAZEPINE 300 MG TAB PO SCH ×2 (09:53→21:58)
[2019-06-03] MEDS: ENOXAPARIN SODIUM 30 MG/0.3 ML SQ SCH (09:54)
[2019-06-03 12:00] VITALS: BP 144/83
[2019-06-03 16:00] VITALS: BP 119/77
[2019-06-03] MEDS: **HM**(Dolutegravir Sodium (Tivicay) 50 MG PO SCH (19:28)
[2019-06-03] MEDS: TENOFOV ALAFENAM PO SCH (19:28)
[2019-06-03] MEDS: EMTRICITABINE PO SCH (19:28)
[2019-06-03 20:29] VITALS: BP 150/74
[2019-06-03] MEDS: ZIPRASIDONE HCL 80 MG CAPSULE GT SCH (21:58)
[2019-06-03] MEDS: LISINOPRIL 40 MG TABLET GT SCH (21:58)
[2019-06-03] MEDS: LANSOPRAZOLE 15 MG SOLU TAB PEG SCH (21:58)
[2019-06-03] MEDS: BENZTROPINE MESYLATE 0.5 MG TAB PO SCH (21:58)
[2019-06-04] VITALS: BP 132/57
[2019-06-04 04:12] VITALS: BP 131/77
[2019-06-04] MEDS: METOPROLOL TARTRATE 25 MG TAB GT SCH ×2 (09:51→20:26)
[2019-06-04] MEDS: ASPIRIN 81 MG EC TAB GT SCH (09:52)
[2019-06-04] MEDS: OXCARBAZEPINE 300 MG TAB PO SCH ×2 (09:52→20:27)
[2019-06-04] MEDS: BUPROPION HCL 150 MG TABLET.SA PO SCH (09:52)
[2019-06-04] MEDS: ENOXAPARIN SODIUM 30 MG/0.3 ML SQ SCH (09:53)
[2019-06-04] MEDS: FAMOTIDINE/PF 20 MG/2 ML VIAL IV SCH (09:53)
[2019-06-04] MEDS: EMTRICITABINE PO SCH (20:16)
[2019-06-04] MEDS: TENOFOV ALAFENAM PO SCH (20:16)
[2019-06-04] MEDS: **HM**(Dolutegravir Sodium (Tivicay) 50 MG PO SCH (20:16)
[2019-06-04] MEDS: ZIPRASIDONE HCL 80 MG CAPSULE GT SCH (20:26)
[2019-06-04] MEDS: LISINOPRIL 40 MG TABLET GT SCH (20:27)
[2019-06-04] MEDS: LANSOPRAZOLE 15 MG SOLU TAB PEG SCH (20:28)
[2019-06-04] MEDS: BENZTROPINE MESYLATE 0.5 MG TAB PO SCH (22:52)
[2019-06-05] VITALS (11 sets, daily range): BP systolic 99–145; BP diastolic 47–76
[2019-06-05] MEDS: FAMOTIDINE/PF 20 MG/2 ML VIAL IV SCH (09:35)
[2019-06-05] MEDS: ASPIRIN 81 MG EC TAB GT SCH (09:35)
[2019-06-05] MEDS: BUPROPION HCL 150 MG TABLET.SA PO SCH (09:35)
[2019-06-05] MEDS: OXCARBAZEPINE 300 MG TAB PO SCH ×2 (09:36→20:23)
[2019-06-05] MEDS: METOPROLOL TARTRATE 25 MG TAB GT SCH ×2 (09:36→20:24)
[2019-06-05] MEDS: ENOXAPARIN SODIUM 30 MG/0.3 ML SQ SCH (09:38)
--- NOTE | 2019-06-05 13:22 | NUR ---
RD FOLLOW UP Pt currently on Glucerna 1.5 at 55mls/hr. Flushes at 125cc Q4. LBM: 06/04. D[facility]C [facility]. S/P multiple toe amputation sites with no signs of infection. No edema noted. Pt with sudden occurrences of Hyponatremia, possibly due to Trileptal medication. Continue to monitor Na labs RD recommends continue flushes at 125cc Q4. If Na not resolving, decrease flushes to 120cc/115cc Q4. RD will continue to monitor and follow up Addendum: 06/05/19 at [address] Amended: Links added.
--- NOTE | 2019-06-05 13:52 | NUR ---
DENIED AT [facility] AND AT [facility] CALL TO SPOUSE PENDING. THIS CM BELIEVES THE PATIENT WILL BE BETTER OFF AT HOME- WITH PROVIDER AND FAMILY.
--- NOTE | 2019-06-05 14:05 | NUR ---
CALL TO SPOUSE EXPLAINED THAT NO FACILITY WITH TAKE PATIENT BECAUSE 1. STILL ON A ONE TO ONE 2. PSYCH HISTORY WITH PROBLEMS AT [facility] IN THE MEDICAL RECORD 3. NO DISPOSITION AFTER THE SHORT TERM REHAB SPOUSE states she will not take patient home until he can walk again (!) CM REPLIED THAT THE DAY OF THE PATIENT WALKING ARE PROBABLY GONE. PT NEEDS OT BE AROUND FAMILY FOR COMFORT- SPOUSE HAD STATED PT HAD A PROVIDER SPOUSE STATES NO PT CANNOT COME ADVISED HER ONLY ST WITH TRANSITION TO [facility]TER WITH HAVE A CHANCE OF PLACEMENT. OFFERED HER [facility] IN [place] A POSSIBLE PLACEMENT STATES SHE WILL HAVE TO TALK TO HER MOTHER.
[2019-06-05] MEDS ORDERED: ACETAMINOPHEN 325 MG TAB PO PRN (14:45)
[2019-06-05] MEDS: ZIPRASIDONE HCL 80 MG CAPSULE GT SCH (20:23)
[2019-06-05] MEDS: BENZTROPINE MESYLATE 0.5 MG TAB PO SCH (20:23)
[2019-06-05] MEDS: EMTRICITABINE PO SCH (20:24)
[2019-06-05] MEDS: TENOFOV ALAFENAM PO SCH (20:24)
[2019-06-05] MEDS: LISINOPRIL 40 MG TABLET GT SCH (20:24)
[2019-06-05] MEDS: LANSOPRAZOLE 15 MG SOLU TAB PEG SCH (20:24)
[2019-06-05] MEDS: **HM**(Dolutegravir Sodium (Tivicay) 50 MG PO SCH (20:25)
[2019-06-06] VITALS: BP 121/56
--- NOTE | 2019-06-06 01:44 | NUR ---
feeding tube flushed feeding tube with 125 ml of water at 20:00, at 00:00 on 06/06/19, and will flush again at 04:00 with 125 ml of water. At 20:00 there was some resistance with flushing tube. Had to milk it and flush it.
[2019-06-06 04:00] VITALS: BP 128/60
[2019-06-06 05:52] LABS: CREATININE 1.4 mg/dL (0.5-1.5); POTASSIUM 4.9 mmol/L (3.5-5.1)
--- NOTE | 2019-06-06 06:07 | NUR ---
wound care wound care conducted on coccyx and both feet. pictures taken.
--- NOTE | 2019-06-06 10:00 | NUR ---
MBSS COMPLETED. +ASPIRATION WITH THIN LIQUIDS WITH COUGH RESPONSE. RECOMMEND MECHANICAL SOFT/GROUND, NECTAR-THICK LIQUIDS; PILLS CRUSHED WITH APPLESAUCE. RECOMMENDATIONS: LTG1: Pt WILL TOLERATE LEAST RESTRICTIVE DIET WITH NO S/S OF ASPIRATION. STG1:Pt WILL TOLERATE MECHANICAL SOFT/GROUND, NECTAR-THICK LIQUIDS WITH NO OVERT S/S OF ASPIRATION. STG2: Pt WILL PARTICIPATE IN THERAPEUTIC TRIALS OF ADVANCED TEXTURE OF MECHANICAL SOFT WITH NO OVERT S/S OF ASPIRATION. STG3: Pt WILL UTILIZE SAFE SWALLOW PRECAUTIONS WITH MILD ASSISTANCE WITH 100% ACCURACY. STG4: SKILLED EDUCATION Pt/FAMILY/STAFF. Addendum: 06/06/19 at 1738 by RONI REYES, [facility] Amended: Links added.
[2019-06-06] MEDS: FAMOTIDINE 20MG TAB 20 MG TAB PO SCH (10:52)
[2019-06-06] MEDS: METOPROLOL TARTRATE 25 MG TAB GT SCH ×2 (10:52→21:55)
[2019-06-06] MEDS: BUPROPION HCL 150 MG TABLET.SA PO SCH (10:52)
[2019-06-06] MEDS: ASPIRIN 81 MG EC TAB GT SCH (10:52)
[2019-06-06] MEDS: OXCARBAZEPINE 300 MG TAB PO SCH ×2 (10:53→21:55)
[2019-06-06] MEDS: ENOXAPARIN SODIUM 30 MG/0.3 ML SQ SCH (10:53)
--- NOTE | 2019-06-06 15:00 | NUR ---
DYANA AGREED TO HAVE PT RETURNHOME PADMINI SPOKE TO FAMILY AND EXPLAINED THAT CM COULD CONTINUE TO LOOK FOR [facility] PLACEMENT BUT [facility] MEANS HE GOES TO A FACILITY TO LIVE AND SO DOES HIS INCOME, SPOUSE CALLED BACK LATER SAYING YES SHE WANTED HIM HOME. WILL MAKE ARRANGMENTS
[2019-06-06 20:09] VITALS: BP 124/58
[2019-06-06] MEDS: LANSOPRAZOLE 15 MG SOLU TAB PEG SCH (21:55)
[2019-06-06] MEDS: ZIPRASIDONE HCL 80 MG CAPSULE GT SCH (21:55)
[2019-06-06] MEDS: BENZTROPINE MESYLATE 0.5 MG TAB PO SCH (21:55)
[2019-06-06] MEDS: LISINOPRIL 40 MG TABLET GT SCH (21:56)
[2019-06-06] MEDS: TENOFOV ALAFENAM PO SCH (21:56)
[2019-06-06] MEDS: **HM**(Dolutegravir Sodium (Tivicay) 50 MG PO SCH (21:56)
[2019-06-06] MEDS: EMTRICITABINE PO SCH (21:56)
[2019-06-06] MEDS: HALOPERIDOL LACTATE 5 MG/ML VIAL IM PRN (22:28)
[2019-06-06 23:50] VITALS: BP 109/51
--- NOTE | 2019-06-06 23:53 | NUR ---
peg tube flushed peg tube with 125 ml of water at 20:00, will flush at 00:00, and at 04:00 the same amount. no issues.
--- NOTE | 2019-06-07 03:38 | NUR ---
wound care cleaned coccyx with sterile water and applied medihoney then allevyn life foam. cleaned both feet with sterile water, betadine and wrapped with kerlex. no issues
[2019-06-07 04:03] VITALS: BP 140/63
[2019-06-07 05:35] LABS: HEMATOCRIT 28.9 % (42-54); MEAN CORPUSCULAR HEMOGLOBIN 26.8 pg (27.0-33.0); MEAN CORPUSCULAR HGB CONC 33.8 g/dL (32.0-36.0); MEAN CORPUSCULAR VOLUME 79.2 fL (79-99); PLATELET COUNT (AUTO) 502 K/uL (130-400); RED BLOOD CELL COUNT(AUTO) 3.65 MIL/uL (4.50-6.20); RED CELL DISTRIBUTION WIDTH 15.5 % (11.0-15.5); WHITE BLOOD COUNT (AUTO) 5.3 K/uL (4.8-10.8)
[2019-06-07 06:01] LABS: CREATININE 1.3 mg/dL (0.5-1.5); POTASSIUM 4.8 mmol/L (3.5-5.1)
[2019-06-07 08:00] VITALS: BP 139/79
[2019-06-07] MEDS: METOPROLOL TARTRATE 25 MG TAB GT SCH ×2 (08:13→20:05)
[2019-06-07] MEDS: BUPROPION HCL 150 MG TABLET.SA PO SCH (08:13)
[2019-06-07] MEDS: FAMOTIDINE 20MG TAB 20 MG TAB PO SCH (08:13)
[2019-06-07] MEDS: OXCARBAZEPINE 300 MG TAB PO SCH ×2 (08:13→20:05)
[2019-06-07] MEDS: ASPIRIN 81 MG EC TAB GT SCH (08:13)
[2019-06-07] MEDS: ENOXAPARIN SODIUM 30 MG/0.3 ML SQ SCH (08:28)
--- NOTE | 2019-06-07 10:30 | NUR ---
DIET RECOMMENDATIONS FOR MECHANICAL SOFT/GROUND, NECTAR-THICK LIQUIDS. ' Pt PARTICIPATED IN BREAKFAST WITH IMPROVED P.O. NO OVERT S/S OF ASPIRATION PRESENT AT THE TIME OF THE MEAL. Pt TOLERATING CURRENT DIET. RECOMMEND CONTINUED MECHANICAL SOFT/GROUND, NECTAR-THICK LIQUIDS; PILLS CRUSHED WITH PUREED OR CRUSHED VIA PEG. Addendum: 06/07/19 at [address] Amended: Links added.
[2019-06-07 11:48] VITALS: BP 121/67
[2019-06-07 16:00] VITALS: BP 108/64
--- NOTE | 2019-06-07 16:00 | NUR ---
DISCHARGE PLANNING SPOUSE HAS RECD HOSPITAL BED AND BSC FROM [facility], SPOUSE UPSET THAT THEY CAME SO SOON WHEELCHAIR WAS ORDERED /APPROVED ON LAST ADMIT,BUT NEVER REC'D PATIENT WENT TO [facility] CALL TO SWAPNIL'Maria C, STATE THEY WILL HAVE TO RE AUTH THE WHEELCHAIR, PUT INTO PROCESS ORDER FROM DR MUIR TO OK IN AM IF ALL EQUIPMENT REC'D REFERRAL TO [facility] PENDING FOR PHYSICAL THERAPY AND SKILLED CHECKS
--- NOTE | 2019-06-07 16:25 | NUR ---
RD FOLLOW UP DIET: REGULAR- MECHANICAL GROUND, PUREED, NECTAR THICK LIQUIDS. PO INTAKE 100% AND HAS GREAT APPETITE. LBM: 06/06 NOTED. PT HAS ULCER IN BUTTOCKS REGION. PT TOLERATING DIET WELL. PENDING D/C. RD RECOMMENDS CONTINUE CURRENT DIET OFFER GLUCERNA TID, 30MLS PROMOD BID, ERNIE BID RECOMMEND VITAMIN C AND ZINC SULFATE- AID WOUND HEALING RD WILL CONTINUE TO MONITOR AND F/U NEEDED Addendum: 06/07/19 at [address] Amended: Links added.
[2019-06-07 20:00] VITALS: BP 112/57
[2019-06-07] MEDS: ZIPRASIDONE HCL 80 MG CAPSULE GT SCH (20:05)
[2019-06-07] MEDS: LANSOPRAZOLE 15 MG SOLU TAB PEG SCH (20:05)
[2019-06-07] MEDS: EMTRICITABINE PO SCH (20:06)
[2019-06-07] MEDS: **HM**(Dolutegravir Sodium (Tivicay) 50 MG PO SCH (20:06)
[2019-06-07] MEDS: TENOFOV ALAFENAM PO SCH (20:06)
[2019-06-07] MEDS: BENZTROPINE MESYLATE 0.5 MG TAB PO SCH (20:06)
[2019-06-07] MEDS: LISINOPRIL 40 MG TABLET GT SCH (20:06)
[2019-06-08] VITALS: BP 143/64
[2019-06-08] MEDS: HALOPERIDOL LACTATE 5 MG/ML VIAL IM PRN (00:04)
[2019-06-08 04:00] VITALS: BP 126/64
[2019-06-08 08:00] VITALS: BP 138/65
[2019-06-08] MEDS: FAMOTIDINE 20MG TAB 20 MG TAB PO SCH (08:56)
[2019-06-08] MEDS: BUPROPION HCL 150 MG TABLET.SA PO SCH (08:57)
[2019-06-08] MEDS: ASPIRIN 81 MG EC TAB GT SCH (08:57)
[2019-06-08] MEDS: METOPROLOL TARTRATE 25 MG TAB GT SCH ×2 (08:57→21:03)
[2019-06-08] MEDS: OXCARBAZEPINE 300 MG TAB PO SCH ×2 (08:57→21:03)
[2019-06-08] MEDS: ENOXAPARIN SODIUM 30 MG/0.3 ML SQ SCH (08:59)
[2019-06-08 12:00] VITALS: BP 108/64
--- NOTE | 2019-06-08 12:06 | NUR ---
SWALLOW TREATMENT COMPLETED. DIET RECOMMENDATIONS FOR MECHANICAL SOFT/GROUND, NECTAR-THICK LIQUIDS. ' Pt RAISED TO 90 DEGREES IN BED, Pt COOPERATIVE DURING THE SESSION. Pt PARTICIPATED IN THERAPEUTIC TRIALS OF MECHANICAL SOFT WITH IMPROVED P.O. NO OVERT S/S OF ASPIRATION PRESENT AT THE TIME OF THE SESSION. OFFICIAL GREETER CUED Pt FOR SLOW RATE. Pt TOLERATING CURRENT DIET. RECOMMEND CONTINUED MECHANICAL SOFT/GROUND, NECTAR-THICK LIQUIDS; PILLS CRUSHED WITH PUREED OR CRUSHED VIA PEG. Addendum: 06/08/19 at 1209 by RONI REYES, [facility] ST Amended: Links added.
--- NOTE | 2019-06-08 14:57 | NUR ---
DC PLANNING FOLLOW UP CALLS X 4 TO [facility], WAS ADVISED THAT THEIR CUSTODIAL OFFICER STATES UNLIKELY THAT INSURANCE WILL APPROVE THERAPY, BUT WILL REVIEW. ADVISED [place] THAT PATIENT WILL BE DCD TODAY --WILL NEED SOME CARE HOME- SITE CARE OF PEG, WOUND CARE TO FEET, ETC. STATES THEY WILL CALL BACK. RN AWARE, MOTHER IN LAW AWARE THAT MOST ACTIVITY AT HOME WILL BE FAMILY RESPONSIBLITY
[2019-06-08 16:00] VITALS: BP 129/66
--- NOTE | 2019-06-08 18:00 | NUR ---
SUMMARY OF DISCHARGE PLANNING [facility] DECLINED PATIENT, CALL MADE TO [facility], WENT OVER THE ORDERS WITH THE NURSES OCTOBER AND ONE OF THE RNS CALLED BACK THIS CM; THEY .NEEDED DETAILED ORDERS FOR THE WOUND CARE, ORDERS ENTERED AND FAXED, TYRONE CRYSTAL CALLED REPORT AND UPDATED DR. MUIR THAT WAS ARRANGED AND CALLED REPORT, WAITING FOR EMS, NOW MULTIPLE CALLS FROM FAMILY ALL DAY LONG REGARDING PATIENT'S DISCHARGE THE HOUSE
--- NOTE | 2019-06-08 19:40 | NUR ---
DISCHARGE PATIENT GIVEN DISCHARGE INSTRUCTIONS VIA TEACH BACK. NO IV TO DISCONTINUE. PATIENT'S MOTHER IN LAW AND SPOUSE GIVEN INSTRUCTIONS VERBALLY AND DEMONSTRATED FOR WOUND CARE TO COCCYX AND AMPUTATION SITES. INSTRUCTED ON PEG FLUSHING AND CHECKING FOR RESIDUAL. FAMILY AND PATIENT AWARE OF [facility] TO PROVIDER WOUND CARE AND PHYSICAL THERAPY. REPORT GIVEN TO TYRONE COON. REPORTED TO TYRONE COON REGARDING MEDICATION CHANGE OF TRILEPTAL 600MG 1 TAB PO BID TO 300MG 1 TAB PO BID. PER SHAGGY, WILL REINFORCED THE MEDICATION CHANGE. PATIENT STABLE AT THIS TIME. PENDING TRANSPORTATION FROM EMS TO TRANSFER TO PATIENT'S HOME. REPORT GIVEN TO TYRONE CLARK ONCOMING SHIFT.
[2019-06-08 20:45] VITALS: BP 130/62
--- NOTE | 2019-06-08 20:49 | NUR ---
DISCHARGE PAGED DR MUIR TO INFORM HIM THAT PATIENTS KASIA MADDEN SAYS SHES NOT AT HOME AND THAT IT IS TO LATE FOR PATIENT TO GO HOME. SHE WANTED TO KNOW WHAT TIME EMS WOULD BE HERE. I INFORMED HER THAT EMS STATED THERE WAS 4 PTS IN FRONT OF HIM. FAMILY MEMBER STATED THAT THE DOOR WAS LOCKED AT HER HOUSE AND THERE WASNT ANYONE AT HOME. 2118 DR MUIR NOTIFIED AND STATED TO HOLD PATIENT FOR TONIGHT AND TO DC IN THE MORNING.
[2019-06-08] MEDS: TENOFOV ALAFENAM PO SCH (21:00)
[2019-06-08] MEDS: **HM**(Dolutegravir Sodium (Tivicay) 50 MG PO SCH (21:00)
[2019-06-08] MEDS: EMTRICITABINE PO SCH (21:00)
[2019-06-08] MEDS: LISINOPRIL 40 MG TABLET GT SCH (21:03)
[2019-06-08] MEDS: ZIPRASIDONE HCL 80 MG CAPSULE GT SCH (21:03)
[2019-06-08] MEDS: LANSOPRAZOLE 15 MG SOLU TAB PEG SCH (21:04)
[2019-06-08] MEDS: BENZTROPINE MESYLATE 0.5 MG TAB PO SCH (21:04)
[2019-06-08] MEDS: HYDROXYZINE HCL 25 MG TABLET PO PRN (21:04)
[2019-06-09 00:03] VITALS: BP 127/73
[2019-06-09 04:03] VITALS: BP 122/74
[2019-06-09 08:00] VITALS: BP 151/77
--- NOTE | 2019-06-09 08:22 | NUR ---
DISCHARGE EMS NOTIFIED OF DISCHARGE, REFAXED EMS FORM. SPOKE WITH MADE AWARE PATIENT WILL BE DISCHARGED THIS AM
[2019-06-09] MEDS: FAMOTIDINE 20MG TAB 20 MG TAB PO SCH (08:36)
[2019-06-09] MEDS: BUPROPION HCL 150 MG TABLET.SA PO SCH (08:36)
[2019-06-09] MEDS: OXCARBAZEPINE 300 MG TAB PO SCH (08:36)
[2019-06-09] MEDS: METOPROLOL TARTRATE 25 MG TAB GT SCH (08:36)
[2019-06-09] MEDS: ASPIRIN 81 MG EC TAB GT SCH (08:36)
[2019-06-09] MEDS: ENOXAPARIN SODIUM 30 MG/0.3 ML SQ SCH (08:37)
--- NOTE | 2019-06-09 10:00 | NUR ---
DISCHARGE ATTEMPTED TO CALL PATIENTS AND PATIENTS DAUGHTER TO NOTIFY THEM PATIENT IN ROUTE HOME VIA EMS, NO ANSWER
== END 2019-06-09 10:05 | disposition home or self-care (01) | DRG 137 ==
LOC: EDH 20:05 → EDHIP 20:06 → 3BH 05-23 06:06
PROVIDERS: ADMIT Internal Medicine; ATTEND Internal Medicine
PROC: 0HBRXZZ Excision of Toe Nail, External Approach (ICD-10-PCS; principal; 2019-05-27)
PROC: 0HBRXZZ Excision of Toe Nail, External Approach (ICD-10-PCS; 2019-05-27)
PROC: 0HBRXZZ Excision of Toe Nail, External Approach (ICD-10-PCS; 2019-05-27)
PROC: 0HBRXZZ Excision of Toe Nail, External Approach (ICD-10-PCS; 2019-05-27)
PROC: 0HBRXZZ Excision of Toe Nail, External Approach (ICD-10-PCS; 2019-05-27)
PROC: 0HBRXZZ Excision of Toe Nail, External Approach (ICD-10-PCS; 2019-05-27)
PROC: 0HBRXZZ Excision of Toe Nail, External Approach (ICD-10-PCS; 2019-05-27)
PROC: 0HBRXZZ Excision of Toe Nail, External Approach (ICD-10-PCS; 2019-05-27)
PROC: 0JBR0ZZ Excision of Left Foot Subcutaneous Tissue and Fascia, Open Approach (ICD-10-PCS; 2019-05-27)
PROC: 0JBQ0ZZ Excision of Right Foot Subcutaneous Tissue and Fascia, Open Approach (ICD-10-PCS; 2019-05-27)
DX: J69.0 Pneumonitis due to inhalation of food and vomit (principal); G93.40 Encephalopathy, unspecified; E11.52 Type 2 diabetes mellitus with diabetic peripheral angiopathy with gangrene; T87.81 Dehiscence of amputation stump; R78.81 Bacteremia; E87.1 Hypo-osmolality and hyponatremia; B35.1 Tinea unguium; K94.22 Gastrostomy infection; F17.200 Nicotine dependence, unspecified, uncomplicated; I10 Essential (primary) hypertension; E11.42 Type 2 diabetes mellitus with diabetic polyneuropathy; L60.2 Onychogryphosis; F31.9 Bipolar disorder, unspecified; B95.2 Enterococcus as the cause of diseases classified elsewhere; Z21 Asymptomatic human immunodeficiency virus [HIV] infection status; Z16.24 Resistance to multiple antibiotics; Y83.5 Amputation of limb(s) as the cause of abnormal reaction of the patient, or of later complication, without mention of misadventure at the time of the procedure; Z91.19 Patient's noncompliance with other medical treatment and regimen; Z89.422 Acquired absence of other left toe(s); Z79.899 Other long term (current) drug therapy; Y92.89 Other specified places as the place of occurrence of the external cause
CPT/HCPCS: 36415; 70450; 71045; 74176; 74230; 80048; 80053; 82140; 82550; 82948; 84484; 85025; 85027; 85610; 85730; 87070; 87076; 87077; 87186; 92507; 92611; 93005; 97039; G0378; G0480; G0481; J1630; J1650; J1956; J2543; J3370; J3490; L3260

== ENCOUNTER 2019-08-20 12:36 | Observation (INO) | payer MEDICAID ==
[~2019-08-20] VITALS: Ht 180.3 cm; Wt 64.0 kg
[~2019-08-20 12:36] MED LIST changes: +ACET-66 PO; +ASPI-555 GT; +BENZ1TAB10 GT; -BENZ1TAB10 PO; +BUPR300T53 GT; -BUPR300T54 PO; +DOLU50TA GT; -DOLU50TA PO; +DULO30CA2 GT; +EMTR1TAB12 GT; -EMTR1TAB12 PO; +HYDR-3422 GT; +LISI40TA4 GT; -LISI40TA4 PO; +METO25TA6 GT; +OMEP40CA13 GT; -OMEP40CA13 PO; +OXCA300T28 PO; -OXCA600T18 PO; -TRAM50TA4 PO; +ZIPR80CA21 GT; -ZIPR80CA21 PO
[2019-08-20] MEDS ORDERED: DEXTROSE 50%-WATER 50 ML DISP.SYRIN IV ONE ×2 (12:46→14:27)
[2019-08-20 13:15] LABS: BASOPHILS % (AUTO) 0.2 % (0.0-5.0); EOSINOPHILS % (AUTO) 0.1 % (0.0-8.0); HEMATOCRIT 25.9 % (42-54); LYMPHOCYTES % (AUTO) 7.6 % (21.0-51.0); MEAN CORPUSCULAR HEMOGLOBIN 26.5 pg (27.0-33.0); MEAN CORPUSCULAR HGB CONC 31.7 g/dL (32.0-36.0); MEAN CORPUSCULAR VOLUME 83.5 fL (79-99); MONOCYTES % (AUTO) 5.1 % (3.0-13.0); NEUTROPHILS % (AUTO) 86.8 % (40.0-77.0); PLATELET COUNT (AUTO) 425 K/uL (130-400); WHITE BLOOD COUNT (AUTO) 8.8 K/uL (4.8-10.8)
[2019-08-20 13:23] LABS: CREATININE 1.1 mg/dL (0.5-1.5); POTASSIUM 4.1 mmol/L (3.5-5.1)
[2019-08-20 13:29] LABS: ALBUMIN 2.8 g/dL (3.5-5.0); BILIRUBIN,TOTAL 0.1 mg/dL (0.2-1.0); TOTAL PROTEIN, SERUM 7.2 g/dL (6.0-8.3)
[2019-08-20] MEDS ORDERED: DEXTROSE 5 %-0.45 % NACL 1,000 ML IV ONE (14:27)
[2019-08-20 17:00] VITALS: BP 125/74
--- NOTE | 2019-08-20 17:00 | NUR ---
DR. MUIR HAS BEEN PAGE TWICE TO ASK FOR MORE ORDERS IN PT TREATMENT.
[2019-08-20 19:25] VITALS: BP 138/89
--- NOTE | 2019-08-20 20:11 | NUR ---
Spoke to dr robertson via phone,he said he gave admission orders in er already.
[2019-08-20] MEDS ORDERED: GLUCAGON 1MG KIT 1 MG ML IM PRN (20:15)
[2019-08-20] MEDS ORDERED: HYDROXYZINE HCL 25 MG TABLET GT PRN (20:15)
[2019-08-20] MEDS ORDERED: DEXTROSE 50%-WATER 50 ML DISP.SYRIN IV PRN (20:15)
[2019-08-20] MEDS: TENOFOV ALAFENAM PO SCH (21:00)
[2019-08-20] MEDS: ZIPRASIDONE HCL 80 MG CAPSULE GT SCH (21:00)
[2019-08-20] MEDS: EMTRICITABINE PO SCH (21:00)
[2019-08-20] MEDS: **HM**(Dolutegravir Sodium (Tivicay) 50 MG PO SCH (21:00)
[2019-08-20] MEDS: BENZTROPINE MESYLATE 0.5 MG TAB PO SCH (21:35)
[2019-08-20] MEDS: PANTOPRAZOLE SODIUM 40 MG TABLET.DR GT SCH (21:35)
[2019-08-20] MEDS: DULOXETINE HCL 30 MG CAP GT SCH (21:35)
[2019-08-20] MEDS: LISINOPRIL 40 MG TABLET GT SCH (21:36)
[2019-08-20 23:16] VITALS: BP 136/63
[2019-08-21 03:19] VITALS: BP 150/77
--- NOTE | 2019-08-21 04:50 | NUR ---
STATUS Pt slept well.Denies pain.No signs of hypoglycemia noted.
[2019-08-21 07:30] VITALS: BP 147/73
[2019-08-21] MEDS: OXCARBAZEPINE 300 MG TAB PO SCH ×2 (09:34→17:00)
[2019-08-21] MEDS: BUPROPION HCL 150 MG TABLET.SA PO SCH (09:35)
[2019-08-21] MEDS: DULOXETINE HCL 30 MG CAP GT SCH ×2 (09:35→20:55)
[2019-08-21] MEDS: ASPIRIN 81 MG EC TAB GT SCH (09:36)
[2019-08-21] MEDS: ACETAMINOPHEN EXTRA STRENGTH 500 MG TABLET PO SCH (09:38)
[2019-08-21 11:00] VITALS: BP 154/76
--- NOTE | 2019-08-21 13:58 | NUR ---
[facility] consult Patient assessed as ordered. Patient reports having ulcer to coccyx for approx 6 months and has been cared for by home health nurses under orders of Dr. Belcher. [facility] recommendations submitted. Addendum: 08/21/19 at 1400 by HANNAH FOWLER RN/ Amended: Links added.
--- NOTE | 2019-08-21 14:34 | NUR ---
MESSAGE LEFT FOR MD REGARDING PATIENT REQUEST FOR PAIN MED FOR RT KNEE PAIN DUE TO TYLENOL NOT WORKING WELL ,PER PATIENT PENDING CALL BACK
[2019-08-21 16:00] VITALS: BP 158/85
[2019-08-21] MEDS ORDERED: ACETAMINOPHEN-CODEINE 300/30MG TAB PO PRN (18:00)
[2019-08-21] MEDS: ZIPRASIDONE HCL 80 MG CAPSULE GT SCH (18:08)
[2019-08-21] MEDS: BENZTROPINE MESYLATE 0.5 MG TAB PO SCH ×2 (18:09→18:13)
[2019-08-21 19:45] VITALS: BP 134/71
--- NOTE | 2019-08-21 20:00 | NUR ---
MD Dr Belcher came to see pt.He said pt will be dcd in am home with same HH and for User Support Analyst to set up transport.Pt updated on plan of care.
[2019-08-21] MEDS: EMTRICITABINE PO SCH (20:55)
[2019-08-21] MEDS: LISINOPRIL 40 MG TABLET GT SCH (20:55)
[2019-08-21] MEDS: TENOFOV ALAFENAM PO SCH (20:55)
[2019-08-21] MEDS: **HM**(Dolutegravir Sodium (Tivicay) 50 MG PO SCH (20:55)
[2019-08-21] MEDS: PANTOPRAZOLE SODIUM 40 MG TABLET.DR GT SCH (20:55)
[2019-08-21] MEDS: HONEY 1 APPL/ML TUBE TP SCH (20:55)
--- NOTE | 2019-08-21 21:00 | NUR ---
MEDS Psyche meds not given,as per Day Nurse,pt.s gave him his psyche meds due for the night.
[2019-08-21 23:13] VITALS: BP 148/73
--- NOTE | 2019-08-22 02:58 | NUR ---
STATUS Pt awake in bed,watching tv.Denies pain or discomfort.
[2019-08-22 03:45] VITALS: BP 157/64
--- NOTE | 2019-08-22 06:31 | NUR ---
BLOOD SUGAR Blood sugar rechecked 85.
[2019-08-22 07:30] VITALS: BP 123/57
[2019-08-22] MEDS: DULOXETINE HCL 30 MG CAP GT SCH (08:08)
[2019-08-22] MEDS: OXCARBAZEPINE 300 MG TAB PO SCH ×2 (08:08→17:00)
[2019-08-22] MEDS: ASPIRIN 81 MG EC TAB GT SCH (08:08)
[2019-08-22] MEDS: BUPROPION HCL 150 MG TABLET.SA PO SCH (08:09)
--- NOTE | 2019-08-22 08:14 | NUR ---
DISCHARGE PLAN ORDER REVIEWED FOR EMS TRANSPORT HOME WILL PREPARE AUTH FORM Addendum: 08/22/19 at 0817 by CARLOS REYNOSO RN CM Amended: Links added.
[2019-08-22] MEDS: HONEY 1 APPL/ML TUBE TP SCH (08:15)
[2019-08-22] MEDS: ACETAMINOPHEN EXTRA STRENGTH 500 MG TABLET PO SCH (08:23)
--- NOTE | 2019-08-22 09:18 | NUR ---
[facility] FOR [facility] FROM SPOUSE [facility]RA, AUTH FORM FOR [facility] FAXED, [facility] FORMS FAXED, [facility] INFO FAXED, NUMBER IN CHART FOR RN TO CALL REPORT , PRIMARY SPOUSE TO CALL NURSING STATION WHEN SHE IS HOME FROM APPT; WE WILL CALL [facility] THEN
[2019-08-22 11:00] VITALS: BP 153/84
--- NOTE | 2019-08-22 14:30 | NUR ---
received call from spouse of patient ,per spouse will now be home ,and ready for ems transport
--- NOTE | 2019-08-22 15:43 | NUR ---
DISCHARGE REPORT REPORT GIVEN TO TYRONE MULTANI AT [facility]. INFORMED TO CONTINUE HOME MEDS, AND NEW ORDERS FOR WOUND CARE (MEDIHONEY 1X DAILY, COVER WITH ALLEVYN LIFE FOAM DAILY AND PRN.)
--- NOTE | 2019-08-22 16:24 | NUR ---
PATIENT REQUESTED FLU AND PNA VACCINE UPON DISCHARGE. PENDING VACCINE ADMINISTRATION.
--- NOTE | 2019-08-22 16:50 | NUR ---
PT REFUSED PNA VACCINE. FLU VACCINE ADMINISTERED TO RIGHT DELTOID. TOLERATED WELL.
[2019-08-22] MEDS ORDERED: FLU VACC QS2019-20 36MOS UP/PF 60 MCG/0.5 ML ML IM ONE (17:00)
[2019-08-22] MEDS ORDERED: PNEUMOCOCCAL VACCINE POLYVALENT 0.5 ML/VIAL [PPV] IM ONE (17:00)
--- NOTE | 2019-08-22 17:00 | NUR ---
MED NOTE PT PENDING TRANSFER HOME. WILL TAKE MED AT HOME.
--- NOTE | 2019-08-22 17:28 | NUR ---
[facility]: CONTACTED [facility] FOR TRANSFER HOME. PENDING FOR PT PICK-UP.
--- NOTE | 2019-08-22 17:37 | NUR ---
INFORMED OF DISCHARGE DEPOSITION. INFORMED TO CONTINUE HOME MEDS AND TO KEEP FOLLOW UP APPOINTMENT WITH DR MUIR.
--- NOTE | 2019-08-22 19:55 | NUR ---
DC [facility] here to transport pt. informed per Gilma.
== END 2019-08-22 19:51 | disposition home or self-care (01) ==
LOC: EDH 12:36 → EDHIP 12:37 → 4DH 17:02
PROVIDERS: ADMIT Internal Medicine; ATTEND Internal Medicine
DX: E11.649 Type 2 diabetes mellitus with hypoglycemia without coma (principal); I10 Essential (primary) hypertension; F20.9 Schizophrenia, unspecified; F31.9 Bipolar disorder, unspecified; E11.51 Type 2 diabetes mellitus with diabetic peripheral angiopathy without gangrene; Z87.891 Personal history of nicotine dependence; Z89.421 Acquired absence of other right toe(s); Z89.422 Acquired absence of other left toe(s); Z21 Asymptomatic human immunodeficiency virus [HIV] infection status; Z23 Encounter for immunization
CPT/HCPCS: 36415; 71045; 80053; 82550; 82948 ×13; 84484; 85025; 90471; 93005; 99291; G0378 ×13; J7042; J7070 ×2; Q2035; 90732